=== PATIENT | male | born 1955 | race African-American/Black ===

== ENCOUNTER 2018-02-05 15:30 | Inpatient (IN) | payer OTHER ==
[2018-02-05] MEDS ORDERED: MELATONIN 5 MG TABLETS PO PRN (22:00)
[2018-02-05 22:50] VITALS: BMI 17.5
--- NOTE | 2018-02-05 23:12 | HP ---
Admission ROS [facility] Chief Complaint: I am here for alcohol rehab Allergies/Adverse Reactions: Allergies Allergy/AdvReac Type Severity Reaction Status Date / Time No Known Allergies Allergy Verified 01/02/12 18:55 History of Present Illness: 62 yo male with hx of alcohol dependence is here seeking rehab after he was admitted to [facility] 01/29/18 -02/05/18 for alcohol withdrawal. Patient presents today in stable condition. PMHX: HIV, transient paralysis of both lower extremities, uses manual wheelchair for mobility, HTN, bilateral [place] PASS , OA. Denies suicidal / homicidal ideation or suicide attempts. Exam Limitations: Physical Impairment (wheelchair dependent for mobility) - Ebola screening Have you traveled outside of the country in the last 21 days: No (N) Have you had contact with anyone from an Ebola affected area: No Do you have a fever: No - Review of Systems Constitutional: No Symptoms Reported EENT: reports: See HPI, Hearing Loss Respiratory: reports: No Symptoms reported Cardiac: reports: No Symptoms Reported GI: reports: No Symptoms Reported : reports: No Symptoms Reported Musculoskeletal: reports: Joint Stiffness (bilateral lower extremities) Neuro: reports: No Symptoms reported Endocrine: reports: No Symptoms Reported Hematology: reports: No Symptoms Reported Psychiatric: reports: Orientated x3, Anxious Other Systems: Reviewed and Negative Patient History - Patient Medical History Hx Anemia: No Hx Asthma: No Hx Chronic Obstructive Pulmonary Disease (COPD): No Hx Cancer: No Hx Cardiac Disorders: No Hx Congestive Heart Failure: No Hx Hypertension: Yes Hx Hypercholesterolemia: No Hx Pacemaker: No HX Cerebrovascular Accident: No Hx Seizures: No Hx Dementia: No Hx Diabetes: No Hx Gastrointestinal Disorders: No Hx Genitourinary Disorders: No Hx Sexually Transmitted Disorders: No Hx Renal Disease (ESRD): No Hx Human Immunodeficiency Virus (HIV): Yes (on odefsey) Hx Hepatitis C: Yes (treated ) Hx Depression: No Hx Suicide Attempt: No Hx Bipolar Disorder: No Hx Schizophrenia: No - Patient Surgical History Past Surgical History: No Hx Neurologic Surgery: No Hx Cataract Extraction: No Hx Cardiac Surgery: No Hx Lung Surgery: No Hx Breast Surgery: No Hx Breast Biopsy: No Hx Abdominal Surgery: No Hx Appendectomy: No Hx Cholecystectomy: No Hx Genitourinary Surgery: No Hx Section: No Hx Orthopedic Surgery: No Other Surgical History: CERVICAL SPINE SX Anesthesia Reaction: No - PPD History Previous Implant?: Yes Documented Results: Positive w/o proof Date: 01/04/12 Results: hx TB tx INH PPD to be Administered?: No - Reproductive History Patient is a Female of Child Bearing Age (11 -55 yrs old): No - Smoking Cessation Smoking history: Former smoker Have you smoked in the past 12 months: No Hx Chewing Tobacco Use: No Initiated information on smoking cessation: No Family Disease History - Family Disease History Family History: Unable to Obtain Admission Physical Exam S - Vital Signs Vital Signs: Vital Signs - 24 hr 02/05/18 22:42 Pulse Rate 96 H Respiratory 20 Rate Blood Pressure 99/67 - Physical General Appearance: Yes: Thin, Anxious, Other (malodorous) HEENTM: Yes: EOMI, Normal ENT Inspection, Normocephalic, Normal Voice, KENIA, Pharynx Normal, Tm's normal, Hearing Decreased ([place] PASS bilaterally) Respiratory: Yes: Chest Non-Tender, Lungs Clear, Normal Breath Sounds, No Respiratory Distress, No Accessory Muscle Use Neck: Yes: No masses,lesions,Nodules, Trachea in good position Breast: Yes: Breast Exam Deferred Cardiology: Yes: Regular Rhythm, Regular Rate Abdominal: Yes: Normal Bowel Sounds, Non Tender, Flat, Soft Genitourinary: Yes: Within Normal Limits Back: Yes: Normal Inspection Musculoskeletal: Yes: Joint Stiffness, Other (non-ambulatoy, able to bear weight with assistance, joint deofrminity on right index finger) Neurological: Yes: black top raker II-XII NML intact, Fully Oriented, Motor Strength 5/5, Depressed Affect Integumentary: Yes: Normal Color, Dry, Warm Lymphatic: Yes: Within Normal Limits - Diagnostic (1) Wheelchair dependence Current Visit: Yes Status: Chronic (2) Primary generalized (osteo)arthritis Current Visit: Yes Status: Chronic (3) Transient paralysis of right lower extremity Current Visit: Yes Status: Chronic (4) Paralysis of leg, left, transient Current Visit: Yes Status: Chronic (5) Hearing loss, bilateral Current Visit: Yes Status: Chronic (6) Hypertension Current Visit: Yes Status: Chronic Qualifiers: Hypertension type: essential hypertension Qualified Code(s): I10 - Essential (primary) hypertension (7) HIV (human immunodeficiency virus infection) Current Visit: Yes Status: Chronic Comment: compliant with medications (8) Alcohol dependence Current Visit: Yes Status: Acute Qualifiers: Substance use status: uncomplicated Qualified Code(s): F10.20 - Alcohol dependence, uncomplicated [facility] Breath Alcohol Content Breath Alcohol Content: 0.072 Urine Drug Screen - Results Drug Screen Negative: No Urine Drug Screen Results: BZO-Benzodiazepines, TCA-Tricyclic Antidepress Inpatient Rehab Admission - Initial Determination Are CD services needed?: Yes Free of communicable disease: Yes Not in need of hospitalization: Yes - Rehab Admission Criteria Previous failed treatment: Yes Poor recovery environment: Yes Comorbidities: Yes Lacks judgement: Yes Patient is meeting Inpatient Rehab admission criteria:: Yes
[2018-02-05] MEDS ORDERED: MAGNESIUM CITRATE 300 ML BOTTLE PO PRN (23:17)
[2018-02-05] MEDS ORDERED: guaiFENesin/D-METHORPHAN HB 10 ML UNIT-DOSE CUPS PO PRN (23:17)
[2018-02-05] MEDS ORDERED: P-EPHED 60MG/TRIPROLIDI 2.5MG TABLET PO PRN (23:17)
[2018-02-05] MEDS ORDERED: MAG HYDROX/AL HYDROX/SIMETH 30 ML UNIT-DOSE CUP PO PRN (23:17)
[2018-02-05] MEDS ORDERED: MAGNESIUM HYDROX 2400MG/30ML ORAL SUSPENSION 30 ML CUP PO PRN (23:17)
[2018-02-05] MEDS ORDERED: IBUPROFEN 400 MG TABLET (FP) PO PRN (23:17)
[2018-02-05] MEDS ORDERED: LOPERAMIDE HCL 2 MG CAPSULE PO PRN (23:17)
[2018-02-05] MEDS ORDERED: ACETAMINOPHEN 325 MG TABLET (FP) PO PRN (23:17)
[2018-02-05] MEDS ORDERED: MENTHOL/PHENOL 1 EACH UD MM PRN (23:17)
[2018-02-06 02:23] LABS: URINE APPEARANCE TURBID; URINE BILIRUBIN NEGATIVE (<2.0 mg/dL); URINE BLOOD 1+ (NEGATIVE); URINE COLOR AMBER; URINE GLUCOSE (UA) NEGATIVE (NEGATIVE); URINE KETONE NEGATIVE (NEGATIVE); URINE NITRITE NEGATIVE (NEGATIVE); URINE UROBILINOGEN NEGATIVE mg/dL (0.2-1.0)
[2018-02-06 02:28] LABS: URINE LEUK ESTERASE 3+ (NEGATIVE); URINE PROTEIN 2+ (NEGATIVE)
[2018-02-06 02:36] LABS: EPI CELLS RARE /HPF (FEW); URINE HYALINE CAST 4 /lpf
--- NOTE | 2018-02-06 09:32 | EKG ---
Test Reason : Blood Pressure : / mmHG Vent. Rate : 083 BPM Atrial Rate : 083 BPM P-R Int : 168 ms QRS Dur : 082 ms QT Int : 372 ms P-R-T Axes : 080 058 075 degrees QTc Int : 437 ms NORMAL SINUS RHYTHM NORMAL ECG NO PREVIOUS ECGS AVAILABLE Confirmed by DEION COPE MD ([id number]) on 02/06/2018 9:32:03 AM Referred By: Confirmed By:DEION COPE MD
[2018-02-06 10:00] LABS: CHLORIDE 104 mmol/L (98-107); HEMATOCRIT 32.6 % (35.4-49); MCH 34.8 pg (25.7-33.7); MCHC 33.8 g/dl (32.0-35.9); MEAN CELL VOLUME 102.9 fl (80-96); MEAN PLT VOLUME 8.7 fl (7.5-11.1); PLATELET COUNT 288 K/MM3 (134-434); POTASSIUM 4.5 mmol/L (3.5-5.1); RBC 3.17 M/mm3 (4.00-5.60); RDW 15.3 % (11.9-15.9); SODIUM 137 mmol/L (136-145); WHITE BLOOD COUNT 4.4 K/mm3 (4.0-10.0)
[2018-02-06] MEDS ORDERED: EMTRICITAB/RILPIVIRI/TENOF ALA (ODEFSEY) TABLET PO SCH (10:00)
[2018-02-06 10:16] LABS: ALBUMIN 3.5 g/dl (3.4-5.0); ALK PHOS 82 U/L (45-117); ANION GAP 9 (8-16); BILIRUBIN,TOTAL 0.4 mg/dL (0.2-1.0); BLOOD UREA NITROGEN 51 mg/dL (7-18); CALCIUM 9.3 mg/dL (8.5-10.1); CO2 24 mmol/L (21-32); CREATININE 3.3 mg/dL (0.7-1.3); GLUCOSE,RANDOM 84 mg/dL (74-106); SGOT/AST 17 U/L (15-37); SGPT/ALT 12 U/L (12-78); TOT PROT 9.3 g/dl (6.4-8.2)
[2018-02-06] MEDS: PRENATAL VITAMINS W/ FOLIC ACID TABLET (FP) PO SCH (10:39)
[2018-02-06] MEDS: LOSARTAN POTASSIUM 50 MG TABLET (FP) PO SCH (10:39)
[2018-02-06] MEDS: amLODIPine BESYLATE 10 MG TABLET (FP) PO SCH (10:39)
--- NOTE | 2018-02-06 13:42 | HP ---
Psychiatrist Admission - Data Date of interview: 02/06/18 Admission source: [facility] Identifying data: THis is the first 5N inpatient rehabilitation admission for this 62 year old single AA male no children, residing at [facility] [employer], supported on SSI. Medical History: HIV+, Paralysis of both lower extremity and uses wheel-chair, HTN, Osteoarthritis and Hearing loss. Psychiatric History: Denies history of psychiatric treatment Physical/Sexual Abuse/Trauma History: Denies history of sexual, physical and verbal abuse. Vital Signs: Vital Signs - 24 hr 02/05/18 02/06/18 02/06/18 22:42 00:22 03:30 Temperature 97.9 F Pulse Rate 96 H 92 H Respiratory 20 16 16 Rate Blood Pressure 99/67 112/77 02/06/18 07:03 Temperature 97.6 F Pulse Rate 105 H Respiratory 16 Rate Blood Pressure 103/63 Allergies/Adverse Reactions: Allergies Allergy/AdvReac Type Severity Reaction Status Date / Time No Known Allergies Allergy Verified 01/02/12 18:55 Date of last physical exam: 02/05/18 Concur with the findings of this exam: Yes - Substance Abuse/Tx History Hx Alcohol Use: Yes Substance Use Type: Alcohol (vodka more than 1 pints, first drink at age 15.) Hx Substance Use Treatment: Yes Mental Status Exam - Mental Status Exam Alert and Oriented to: Time, Place, Person Cognitive Function: Impaired Patient Appearance: Well Groomed Mood: Hopeful Affect: Appropriate, Mood Congruent Patient Behavior: Appropriate, Cooperative Speech Pattern: Clear, Appropriate Voice Loudness: Normal Thought Process: Goal Oriented Thought Disorder: Not Present Hallucinations: Denies Suicidal Ideation: Denies Homicidal Ideation: Denies Insight/Judgement: Fair Sleep: Fair Appetite: Fair Muscle strength/Tone: Severe Hypotonicity Gait/Station: Other (in [facility]) Psychiatric Findings - Problem List (Margaret 1, 2,3) (1) Alcohol dependence Current Visit: Yes Status: Acute Qualifiers: Substance use status: uncomplicated Qualified Code(s): F10.20 - Alcohol dependence, uncomplicated (2) HIV (human immunodeficiency virus infection) Current Visit: Yes Status: Chronic Comment: compliant with medications (3) Hearing loss, bilateral Current Visit: Yes Status: Chronic (4) Hypertension Current Visit: Yes Status: Chronic Qualifiers: Hypertension type: essential hypertension Qualified Code(s): I10 - Essential (primary) hypertension (5) Paralysis of leg, left, transient Current Visit: Yes Status: Chronic (6) Wheelchair dependence Current Visit: Yes Status: Chronic - Initial Treatment Plan Initial Treatment Plan: Group and supportive therapy, monitor progress as needed.
--- NOTE | 2018-02-06 14:07 | PN ---
[facility] Progress Note Note: Notified by staff to follow up labs. Laboratory Tests 02/06/18 02/06/18 02/06/18 00:05 07:00 07:00 WBC 4.4 D RBC 3.17 L Hgb 11.0 L D Hct 32.6 L D MCV 102.9 H MCH 34.8 H MCHC 33.8 RDW 15.3 D Plt Count 288 D MPV 8.7 D Sodium 137 Potassium 4.5 Chloride 104 Carbon Dioxide 24 Anion Gap 9 BUN 51 H D Creatinine 3.3 H D Creat Clearance w eGFR 19.09 Random Glucose 84 Calcium 9.3 Total Bilirubin 0.4 AST 17 D ALT 12 D Alkaline Phosphatase 82 D Total Protein 9.3 H Albumin 3.5 Urine Color Keerthi Urine Appearance Turbid Urine pH 5.0 Ur Specific [place] 1.015 Urine Protein 2+ H Urine Glucose (UA) Negative Urine Ketones Negative Urine Blood 1+ H Urine Nitrite Negative Urine Bilirubin Negative Urine Urobilinogen Negative Ur Leukocyte Esterase 3+ H D Urine WBC (Auto) 1418 Urine RBC (Auto) 4 Ur Epithelial Cells Rare Hyaline Casts 4 Vital Signs Temperature 97.6 F 02/06/18 07:03 Pulse Rate 105 H 02/06/18 07:03 Respiratory Rate 16 02/06/18 07:03 Blood Pressure 103/63 02/06/18 07:03 O2 Sat by Pulse Oximetry (%) Subj: pt denies denies fever, burning and pain during urination. Obj: General: alert and oriented x 3 Skin: warm and dry GI/: soft, BS+, NT. No pelvic tenderness A/P: CKD: pt to follow up with PCP upon discharge. Increase oral fluids and d/c ibupofen UTI: treat with Levaquin 750mg po daily x 7 days and continue to monitor
--- NOTE | 2018-02-06 15:34 | PN ---
[facility] Progress Note Note: Magnesium containing medication and HIV medication d/c due to creatnine clearance. Pitcher of water ordered to encourage hydration. Will check urine culture prior to starting Levaquin.
[2018-02-06] MEDS: THIAMINE HCL 100 MG TABLET (FP) PO SCH (21:39)
[2018-02-07] MEDS: LOSARTAN POTASSIUM 50 MG TABLET (FP) PO SCH (09:55)
[2018-02-07] MEDS: amLODIPine BESYLATE 10 MG TABLET (FP) PO SCH (09:56)
[2018-02-07] MEDS: PRENATAL VITAMINS W/ FOLIC ACID TABLET (FP) PO SCH (09:56)
[2018-02-07] MEDS ORDERED: levoFLOXacin 750 MG TABLET PO SCH (10:00)
[2018-02-07] MEDS: THIAMINE HCL 100 MG TABLET (FP) PO SCH (21:29)
[2018-02-08] MEDS: LOSARTAN POTASSIUM 50 MG TABLET (FP) PO SCH (10:09)
[2018-02-08] MEDS: PRENATAL VITAMINS W/ FOLIC ACID TABLET (FP) PO SCH (10:10)
[2018-02-08] MEDS: amLODIPine BESYLATE 10 MG TABLET (FP) PO SCH (10:10)
[2018-02-08] MEDS: THIAMINE HCL 100 MG TABLET (FP) PO SCH (21:29)
[2018-02-09] MEDS: amLODIPine BESYLATE 10 MG TABLET (FP) PO SCH (10:45)
[2018-02-09] MEDS: LOSARTAN POTASSIUM 50 MG TABLET (FP) PO SCH (10:45)
[2018-02-09] MEDS: PRENATAL VITAMINS W/ FOLIC ACID TABLET (FP) PO SCH (10:45)
--- NOTE | 2018-02-09 12:09 | PN ---
[facility] Progress Note Note: Pt complains of ear wax to left ear. Denies pain and fever. Ear canal with visible yellow cerumen. Will order Debrox ear gtts BID x 5 days.
[2018-02-09] MEDS: CARBAMIDE PEROXIDE 6.5% OTIC 15 ML BOTTLE AS SCH (21:40)
[2018-02-09] MEDS: THIAMINE HCL 100 MG TABLET (FP) PO SCH (21:40)
[2018-02-09 23:00] LABS: URINE APPEARANCE SLCLOUDY; URINE BILIRUBIN NEGATIVE (<2.0 mg/dL); URINE BLOOD NEGATIVE (NEGATIVE); URINE COLOR YELLOW; URINE GLUCOSE (UA) NEGATIVE (NEGATIVE); URINE KETONE NEGATIVE (NEGATIVE); URINE NITRITE NEGATIVE (NEGATIVE); URINE UROBILINOGEN NEGATIVE mg/dL (0.2-1.0)
[2018-02-09 23:08] LABS: URINE LEUK ESTERASE 3+ (NEGATIVE); URINE PROTEIN 2+ (NEGATIVE)
[2018-02-09 23:09] LABS: EPI CELLS RARE /HPF (FEW); URINE MUCUS RARE
[2018-02-10] MEDS: PRENATAL VITAMINS W/ FOLIC ACID TABLET (FP) PO SCH (10:14)
[2018-02-10] MEDS: amLODIPine BESYLATE 10 MG TABLET (FP) PO SCH (10:14)
[2018-02-10] MEDS: LOSARTAN POTASSIUM 50 MG TABLET (FP) PO SCH (10:14)
[2018-02-10] MEDS: CARBAMIDE PEROXIDE 6.5% OTIC 15 ML BOTTLE AS SCH ×2 (10:15→21:38)
[2018-02-10 14:29] LABS: ALBUMIN 3.6 g/dl (3.4-5.0); ANION GAP 7 (8-16); BILIRUBIN,TOTAL 0.3 mg/dL (0.2-1.0); BLOOD UREA NITROGEN 33 mg/dL (7-18); CALCIUM 9.2 mg/dL (8.5-10.1); CHLORIDE 107 mmol/L (98-107); CO2 26 mmol/L (21-32); CREATININE 2.5 mg/dL (0.7-1.3); GLUCOSE,RANDOM 92 mg/dL (74-106); POTASSIUM 4.3 mmol/L (3.5-5.1); SGOT/AST 20 U/L (15-37); SGPT/ALT 18 U/L (12-78); SODIUM 140 mmol/L (136-145); TOT PROT 9.2 g/dl (6.4-8.2)
[2018-02-10 14:31] LABS: ALK PHOS 83 U/L (45-117)
[2018-02-10] MEDS: THIAMINE HCL 100 MG TABLET (FP) PO SCH (21:37)
[2018-02-11] MEDS: LOSARTAN POTASSIUM 50 MG TABLET (FP) PO SCH (10:03)
[2018-02-11] MEDS: CARBAMIDE PEROXIDE 6.5% OTIC 15 ML BOTTLE AS SCH ×2 (10:03→21:27)
[2018-02-11] MEDS: amLODIPine BESYLATE 10 MG TABLET (FP) PO SCH (10:03)
[2018-02-11] MEDS: PRENATAL VITAMINS W/ FOLIC ACID TABLET (FP) PO SCH (10:03)
[2018-02-11] MEDS: THIAMINE HCL 100 MG TABLET (FP) PO SCH (21:27)
[2018-02-12] MEDS: LOSARTAN POTASSIUM 50 MG TABLET (FP) PO SCH (10:01)
[2018-02-12] MEDS: PRENATAL VITAMINS W/ FOLIC ACID TABLET (FP) PO SCH (10:01)
[2018-02-12] MEDS: amLODIPine BESYLATE 10 MG TABLET (FP) PO SCH (10:01)
[2018-02-12] MEDS: CARBAMIDE PEROXIDE 6.5% OTIC 15 ML BOTTLE AS SCH ×2 (10:05→22:03)
--- NOTE | 2018-02-12 16:05 | PN ---
[facility] Progress Note Note: Vital Signs Temperature 97.9 F 02/12/18 06:52 Pulse Rate 96 H 02/12/18 06:52 Respiratory Rate 18 02/12/18 06:52 Blood Pressure 112/75 02/12/18 06:52 O2 Sat by Pulse Oximetry (%) Laboratory Last Values WBC 4.4 K/mm3 (4.0-10.0) D 02/06/18 07:00 RBC 3.17 M/mm3 (4.00-5.60) L 02/06/18 07:00 Hgb 11.0 GM/dL (11.7-16.9) L D 02/06/18 07:00 Hct 32.6 % (35.4-49) L D 02/06/18 07:00 MCV 102.9 fl (80-96) H 02/06/18 07:00 MCH 34.8 pg (25.7-33.7) H 02/06/18 07:00 MCHC 33.8 g/dl (32.0-35.9) 02/06/18 07:00 RDW 15.3 % (11.9-15.9) D 02/06/18 07:00 Plt Count 288 K/MM3 (134-434) D 02/06/18 07:00 MPV 8.7 fl (7.5-11.1) D 02/06/18 07:00 Sodium 140 mmol/L (136-145) 02/10/18 08:35 Potassium 4.3 mmol/L (3.5-5.1) 02/10/18 08:35 Chloride 107 mmol/L (98-107) 02/10/18 08:35 Carbon Dioxide 26 mmol/L (21-32) 02/10/18 08:35 Anion Gap 7 (8-16) L 02/10/18 08:35 BUN 33 mg/dL (7-18) H D 02/10/18 08:35 Creatinine 2.5 mg/dL (0.7-1.3) H D 02/10/18 08:35 Creat Clearance w eGFR 26.30 (>60) 02/10/18 08:35 Random Glucose 92 mg/dL (74-106) 02/10/18 08:35 Calcium 9.2 mg/dL (8.5-10.1) 02/10/18 08:35 Total Bilirubin 0.3 mg/dL (0.2-1.0) D 02/10/18 08:35 AST 20 U/L (15-37) 02/10/18 08:35 ALT 18 U/L (12-78) D 02/10/18 08:35 Alkaline Phosphatase 83 U/L (45-117) 02/10/18 08:35 Total Protein 9.2 g/dl (6.4-8.2) H 02/10/18 08:35 Albumin 3.6 g/dl (3.4-5.0) 02/10/18 08:35 Urine Color Yellow 02/09/18 23:00 Urine Appearance Slcloudy 02/09/18 23:00 Urine pH 6.0 (5.0-8.0) 02/09/18 23:00 Ur Specific [place] 1.012 (1.001-1.035) 02/09/18 23:00 Urine Protein 2+ (NEGATIVE) H 02/09/18 23:00 Urine Glucose (UA) Negative (NEGATIVE) 02/09/18 23:00 Urine Ketones Negative (NEGATIVE) 02/09/18 23:00 Urine Blood Negative (NEGATIVE) 02/09/18 23:00 Urine Nitrite Negative (NEGATIVE) 02/09/18 23:00 Urine Bilirubin Negative (<2.0 mg/dL) 02/09/18 23:00 Urine Urobilinogen Negative mg/dL (0.2-1.0) 02/09/18 23:00 Ur Leukocyte Esterase 3+ (NEGATIVE) H 02/09/18 23:00 Urine WBC (Auto) 89 /hpf (3-5) 02/09/18 23:00 Urine RBC (Auto) 1 /hpf (0-3) 02/09/18 23:00 Ur Epithelial Cells Rare /HPF (FEW) 02/09/18 23:00 Hyaline Casts 4 /lpf 02/06/18 00:05 Urine Mucus Rare 02/09/18 23:00 RPR Titer Nonreactive (NONREACTIVE) 02/06/18 07:00 Microbiology 02/09/18 16:37 Urine Culture - Final Urine - Urine Clean Catch Providencia Rettgeri Patient AOx3, in no apparent distress Normal HR and Rhythm Lungs clear no adventitious breath sound BS x 4 non tender, non distended Plan: Urine Culture + Providencia Rettgeri which is resistant to all PO abx. Patient needs IV abx tx. Patient to be evaluate at [facility] for further evaluation.
[2018-02-12 16:11] VITALS: BP 113/79; PULSE 88; TEMP 97.8
[2018-02-12] MEDS: THIAMINE HCL 100 MG TABLET (FP) PO SCH (22:03)
== END 2018-02-12 23:43 | disposition short-term general hospital (02) | DRG 772 ==
LOC: YASAS 15:30 → Y5N 21:27
PROVIDERS: ADMIT Psychiatry & Neurology Psychiatry; ATTEND Psychiatry & Neurology Psychiatry
PROC: HZ42ZZZ Group Counseling for Substance Abuse Treatment, Cognitive-Behavioral (ICD-10-PCS; principal; 2018-02-05)
DX: F10.20 Alcohol dependence, uncomplicated (principal); I10 Essential (primary) hypertension; Z21 Asymptomatic human immunodeficiency virus [HIV] infection status; H91.93 Unspecified hearing loss, bilateral; R29.818 Other symptoms and signs involving the nervous system; M15.0 Primary generalized (osteo)arthritis; Z99.3 Dependence on wheelchair; R26.89 Other abnormalities of gait and mobility; N39.0 Urinary tract infection, site not specified
CPT/HCPCS: 36415; 71045-TC-FY; 80053; 81003; 81015; 85027; 86593; 87086; 87186; 93005; 93010

== ENCOUNTER 2018-02-12 17:14 | Inpatient (IN) | payer OTHER ==
--- NOTE | 2018-02-12 17:47 | PDOC ---
History of Present Illness - General Chief Complaint: Urinary Problem Stated Complaint: UTI Time Seen by Provider: 02/12/18 17:27 History Source: Patient - History of Present Illness Initial Comments: 02/12/18 17:49 Patient 62 year old with a PMH of HIV, substance (ETOH, possibly IVDU) male presents to ED c/o increased urgency. States "they told me I had a urine infection" but is unable to provide further history. Denies fevers/chills, dysuria/hematuria. States he follows at [facility], does not know his last CD4 counts, starts he is on anti-retrovirals but cannot recall the name. Patient denies chest pain, shortness of breath, abdominal pain, diarrhea/ constipation, nausea/vomiting, recent travel or sick contacts. As per EMR, patient presents from [facility] following UA/urine culture with Providencia Rettgeri - susceptibility to Meropenem. Past History - Past Medical History Allergies/Adverse Reactions: Allergies Allergy/AdvReac Type Severity Reaction Status Date / Time No Known Allergies Allergy Verified 02/12/18 17:21 Home Medications: Ambulatory Orders Amlodipine Besylate 10 mg PO DAILY 02/05/18 Emtricitab/Rilpiviri/Tenof Ala [Odefsey Tablet] 1 tab PO DAILY 02/05/18 Losartan Potassium [Cozaar] 100 mg PO DAILY 02/05/18 Anemia: No Asthma: No Cancer: No Cardiac Disorders: Yes CVA: No COPD: No CHF: No Dementia: No Diabetes: No GI Disorders: No Disorders: No HTN: Yes Hypercholesterolemia: No Kidney Stones: No Seizures: No - Surgical History Abdominal Surgery: No Appendectomy: No Cardiac Surgery: No Cholecystectomy: No Lung Surgery: No Neurologic Surgery: No Orthopedic Surgery: No - Reproductive History Testicular Surgery: No - Suicide/Smoking/Psychosocial Hx Smoking History: Former smoker Have you smoked in the past 12 months: No Number of Cigarettes Smoked Daily: 3 Information on smoking cessation initiated: No Hx Alcohol Use: Yes Drug/Substance Use Hx: No Substance Use Type: Alcohol Hx Substance Use Treatment: Yes *Physical Exam - Vital Signs Last Vital Signs Temp Pulse Resp BP Pulse Ox 97.8 F 83 20 153/105 100 02/12/18 17:21 02/12/18 17:21 02/12/18 17:21 02/12/18 17:21 02/12/18 17:21 - Physical Exam General Appearance: Yes: Cachetic HEENT: positive: KENIA Neck: positive: Trachea midline, Supple Respiratory/Chest: positive: Lungs Clear Cardiovascular: positive: S1, S2. negative: Edema, JVD, Murmur Vascular Pulses: Dorsalis-Pedis (R): 2+, Doralis-Pedis (L): 2+ Gastrointestinal/Abdominal: positive: Flat, Soft Musculoskeletal: positive: CVA Tenderness (L). negative: CVA Tenderness (R) Extremity: positive: Normal Capillary Refill, Normal Inspection Integumentary: positive: Normal Color, Dry, Warm Neurologic: positive: Fully Oriented, Alert ED Treatment Course - LABORATORY CBC & Chemistry Diagram: 02/12/18 17:55 02/12/18 17:55 Medical Decision Making - Medical Decision Making 02/12/18 17:51 62 year old male presents with increased urinary urgency. Physical exam significant for suprapubic and L CVA tenderness. Will obtain basic labs + UA/ Urine Culture. Targeted treatment for Providencia Rettgeri with Meropenem. IV hydration. Reassess. 02/12/18 19:09 ID consult pending. Patient resting comfortably. UA pending, given previous urine culture will give OTD of Meropenem. 02/12/18 20:12 Patient admitted to inpatient medicine service, Dr. Meza. Patient counseled on POC. Will continue to monitor while in ED. *DC/Admit/Observation/Transfer Diagnosis at time of Disposition: UTI (urinary tract infection) - Referrals - Patient Instructions - Post Discharge Activity
[2018-02-12 18:33] LABS: HEMATOCRIT 33.4 % (35.4-49); HEMOGLOBIN 11.5 GM/dL (11.7-16.9); MCH 35.2 pg (25.7-33.7); MCHC 34.3 g/dl (32.0-35.9); MEAN CELL VOLUME 102.5 fl (80-96); MEAN PLT VOLUME 8.5 fl (7.5-11.1); PLATELET COUNT 279 K/MM3 (134-434); RBC 3.25 M/mm3 (4.00-5.60); RDW 15.2 % (11.9-15.9); WHITE BLOOD COUNT 4.4 K/mm3 (4.0-10.0)
[2018-02-12] MEDS ORDERED: SODIUM CHLORIDE 0.9% 500 ML INFUS.BAG IV ONE (18:44)
[2018-02-12] MEDS ORDERED: MEROPENEM 1 MG in DEXTROSE 5%-WATER - 100 ML IVPB ONE (18:46)
--- NOTE | 2018-02-12 18:48 | PDOC ---
Attending Attestation - Resident Resident Name: AlAbby - ED Attending Attestation I have performed the following: I have examined & evaluated the patient, The case was reviewed & discussed with the resident, I agree w/resident's findings & plan, Exceptions are as noted - Medical Decision Making 02/12/18 18:46 62yo M hx HIV presents to the ED for IV abx 2/2 ucx with MDR UCx sensitive to only penems and amikacin. Pt is HDS. Will cover with meropenem and admit for IV abx. <Margaret Ibarra - Last Filed: 02/12/18 18:46> - Medical Decision Making 02/12/18 19:27 Dr. Weinberg called @19:26pm. Case Discussed at this time, recommends meropenem Q8hrs IV. He will see pt in AM. <Volodymyr Cabrera - Last Filed: 02/12/18 19:28>
[2018-02-12 18:50] LABS: URINE APPEARANCE SLCLOUDY; URINE BILIRUBIN NEGATIVE (<2.0 mg/dL); URINE BLOOD NEGATIVE (NEGATIVE); URINE COLOR YELLOW; URINE GLUCOSE (UA) NEGATIVE (NEGATIVE); URINE KETONE NEGATIVE (NEGATIVE); URINE LEUK ESTERASE 2+ (NEGATIVE); URINE NITRITE NEGATIVE (NEGATIVE); URINE PROTEIN 2+ (NEGATIVE); URINE UROBILINOGEN NEGATIVE mg/dL (0.2-1.0)
[2018-02-12] MEDS ORDERED: WATER IVPB ONE (18:51)
[2018-02-12] MEDS ORDERED: MEROPENEM IVPB ONE (18:51)
[2018-02-12] MEDS ORDERED: DEXTROSE 5% IVPB ONE (18:51)
[2018-02-12 18:54] LABS: EPI CELLS RARE /HPF (FEW); YEAST RARE
[2018-02-12 18:56] LABS: ANISOCYTOSIS 1+; MACROCYTOSIS 1+; PLATELET ESTIMATE ADEQUATE
[2018-02-12 19:03] LABS: ALBUMIN 3.6 g/dl (3.4-5.0); ALK PHOS 93 U/L (45-117); ANION GAP 3 (8-16); BILIRUBIN,TOTAL 0.2 mg/dL (0.2-1.0); BLOOD UREA NITROGEN 31 mg/dL (7-18); CALCIUM 9.5 mg/dL (8.5-10.1); CHLORIDE 109 mmol/L (98-107); CO2 29 mmol/L (21-32); CREATININE 2.5 mg/dL (0.7-1.3); GLUCOSE,RANDOM 94 mg/dL (74-106); POTASSIUM 5.2 mmol/L (3.5-5.1); SGOT/AST 30 U/L (15-37); SGPT/ALT 29 U/L (12-78); SODIUM 141 mmol/L (136-145); TOT PROT 9.4 g/dl (6.4-8.2)
--- NOTE | 2018-02-12 20:18 | HP ---
CHIEF COMPLAINT: Flank Pain, Abnormal Lab Results PCP: Dr. Loza HISTORY OF PRESENT ILLNESS: 62 y/o man from [facility] for Alcohol Detox. Who presents to the ED sent in for +urine culture and left flank pain. Patient had recent admission 01/29/-02/05 for alcohol withdrawal. Patient reports having L- flank pain x several days worse today. Patient reports having R- leg pain which he attributes to neuropathy 2/2 chronic R- hip pain. Patient denies fever, chills, cough, SOB, dizziness, CP, AP , N/V/D, dysuria ER course was notable for: (1) BUN/Cr- 31/2.5 (2) K 5.2 (3) Recent Travel: None PAST MEDICAL HISTORY: HIV + (? HAART Complaint) Alcohol Abuse Hypertension Paralysis of lower extremities (wc dependent) OA Hearing loss PAST SURGICAL HISTORY: C- Spine sx Nasal sx R-Hip Social History: Smoking: Former Alcohol: Vodka 1 pint daily, since age 15 Drugs: Denies Family History: Unable to Obtain Allergies No Known Allergies Allergy (Verified 02/12/18 17:21) HOME MEDICATIONS: Home Medications Medication Instructions Recorded Amlodipine Besylate 10 mg PO DAILY 02/05/18 Emtricitab/Rilpiviri/Tenof Ala 1 tab PO DAILY 02/05/18 [Odefsey Tablet] Losartan Potassium [Cozaar] 100 mg PO DAILY 02/05/18 REVIEW OF SYSTEMS CONSTITUTIONAL: Absent: fever, chills, diaphoresis, generalized weakness, malaise, loss of appetite, weight change HEENT: Absent: rhinorrhea, nasal congestion, throat pain, throat swelling, difficulty swallowing, mouth swelling, ear pain, eye pain, visual changes CARDIOVASCULAR: Absent: chest pain, syncope, palpitations, irregular heart rate, lightheadedness , peripheral edema RESPIRATORY: Absent: cough, shortness of breath, dyspnea with exertion, orthopnea, wheezing, stridor, hemoptysis GASTROINTESTINAL: Absent: abdominal pain, abdominal distension, nausea, vomiting, diarrhea, constipation, melena, hematochezia GENITOURINARY: L- flank pain Absent: dysuria, frequency, urgency, hesitancy, hematuria, genital pain MUSCULOSKELETAL: Arthralgia, R- leg pain Absent: myalgia, joint swelling, back pain, neck pain SKIN: Absent: rash, itching, pallor HEMATOLOGIC/IMMUNOLOGIC: Absent: easy bleeding, easy bruising, lymphadenopathy, frequent infections ENDOCRINE: Absent: unexplained weight gain, unexplained weight loss, heat intolerance, cold intolerance NEUROLOGIC: Absent: headache, focal weakness or paresthesias, dizziness, unsteady gait, seizure, mental status changes, bladder or bowel incontinence PSYCHIATRIC: Absent: anxiety, depression, suicidal or homicidal ideation, hallucinations. PHYSICAL EXAMINATION Vital Signs - 24 hr 02/12/18 02/12/18 17:21 19:47 Temperature 97.8 F 97.3 F L Pulse Rate 83 Pulse Rate [ 76 Radial] Respiratory 20 18 Rate Blood Pressure 153/105 Blood Pressure 150/74 [Right Arm] O2 Sat by Pulse 100 99 Oximetry (%) GENERAL: Thin, awake, alert, and fully oriented, in no acute distress. HEAD: Normal with no signs of trauma. EYES: Pupils equal, round and reactive to light, extraocular movements intact, sclera anicteric, conjunctiva clear. No lid lag. EARS, NOSE, THROAT: Ears- cerumen nares patent, oropharynx clear without exudates. Moist mucous membranes. NECK: Normal range of motion, supple without lymphadenopathy, JVD, or masses. LUNGS: Breath sounds equal, clear to auscultation bilaterally. No wheezes, and no crackles. No accessory muscle use. HEART: Regular rate and rhythm, normal S1 and S2 without murmur, rub or gallop. ABDOMEN: Soft, nontender, not distended, normoactive bowel sounds, no guarding, no rebound, no masses. No hepatomegaly or splenomegaly. MUSCULOSKELETAL: Normal range of motion RUE, LUE joints. No bony deformities. R - hip tenderness. LROM of LE, flaccid tone R>L, L-CVA tenderness. UPPER EXTREMITIES: 2+ pulses, warm, well-perfused. No cyanosis. No clubbing. No peripheral edema. LOWER EXTREMITIES: 2+ pulses, warm, well-perfused. No calf tenderness. No peripheral edema. NEUROLOGICAL: Cranial nerves II-XII intact. Normal speech. Kau-[id number]-[id number] not observed PSYCHIATRIC: Cooperative. Good eye contact. Appropriate mood and affect. SKIN: Warm, dry, normal turgor, no rashes or lesions noted, normal capillary refill. Laboratory Results - last 24 hr 02/12/18 02/12/18 02/12/18 17:55 17:55 18:00 WBC 4.4 RBC 3.25 L Hgb 11.5 L Hct 33.4 L MCV 102.5 H MCH 35.2 H MCHC 34.3 RDW 15.2 Plt Count 279 MPV 8.5 Total Counted 100 Neutrophils % No Result Required. Neutrophils % (Manual) 54.0 Lymphocytes % No Result Required. Lymphocytes % (Manual) 28.0 Monocytes % (Manual) 9 Eosinophils % (Manual) 7.0 H Platelet Estimate Adequate Platelet Comment No clumping noted Anisocytosis 1+ Macrocytosis 1+ Sodium 141 Potassium 5.2 H D Chloride 109 H Carbon Dioxide 29 Anion Gap 3 L BUN 31 H Creatinine 2.5 H Creat Clearance w eGFR 26.30 Random Glucose 94 Calcium 9.5 Total Bilirubin 0.2 D AST 30 D ALT 29 D Alkaline Phosphatase 93 Total Protein 9.4 H Albumin 3.6 Urine Color Yellow Urine Appearance Slcloudy Urine pH 6.0 Ur Specific [place] 1.011 Urine Protein 2+ H Urine Glucose (UA) Negative Urine Ketones Negative Urine Blood Negative Urine Nitrite Negative Urine Bilirubin Negative Urine Urobilinogen Negative Ur Leukocyte Esterase 2+ H Urine WBC (Auto) 66 Urine RBC (Auto) 1 Ur Epithelial Cells Rare Urine Yeast Rare ASSESSMENT/PLAN: This is a 62 y/o man who presents to the ED from [facility] for +Urine Culture, Dysuria, Flank Pain. Admitted for Complicated UTI. 1. Complicated UTI - UA +2 protein, +2 leukocyte esterase, 66 WBC, Urine Culture (done on 02/09/18 ) + providencia rettgeri, Urine Culture-pending - Ordered Blood Cultures x2 - Meropenem given in ED, secondary to blaise - Appreciate ID consult - Monitor CBC - Monitor vitals 2. ?Pyelonephritis - Likely secondary complicated UTI - pt reports flank pain/dysuria - CTAP r/o pyelonephritis concern for abscess - Monitor renal function - Continue ABX - ID consult 3. Hypertension - stable - Continue home meds 4. HIV - Continue Odefsey - Crcl 30ml/mn - Continue to monitor renal function - f/u in outpatient with CD4 5. Alcohol Abuse - CIWAr 0 - Appreciate Detox consult - Monitor vitals - Fall Precautions 6. Cerumen Impaction TELIDA - continue Debrox - f/u ENT outpatient 7. R- Leg Pain - Tylenol prn - Consider Gabapentin for neuropathy 8. Transient Paralysis of lower extremities - Secondary to frequent falls hx, Right hip dislocation, per pt - PT passive ROM - Turn/Position Q2h - Fall Precautions 9. FEN - D51/2NS - Replete lytes prn - NPO 10. DVT ppx - OOB - SCDs - Heparin SQ Dispo: Requires Inpatient Care Problem List - Problem (1) Urinary tract bacterial infections Code(s): N39.0 - URINARY TRACT INFECTION, SITE NOT SPECIFIED; A49.9 - BACTERIAL INFECTION, UNSPECIFIED (2) Alcohol dependence Code(s): F10.20 - ALCOHOL DEPENDENCE, UNCOMPLICATED Qualifiers: (3) HIV (human immunodeficiency virus infection) Code(s): B20 - HUMAN IMMUNODEFICIENCY VIRUS [HIV] DISEASE (4) Hypertension Code(s): I10 - ESSENTIAL (PRIMARY) HYPERTENSION Qualifiers: (5) Primary generalized (osteo)arthritis Code(s): M15.0 - PRIMARY GENERALIZED (OSTEO)ARTHRITIS (6) Transient paralysis of right lower extremity Code(s): R29.818 - OTHER SYMPTOMS AND SIGNS INVOLVING THE NERVOUS SYSTEM (7) Paralysis of leg, left, transient Code(s): R29.818 - OTHER SYMPTOMS AND SIGNS INVOLVING THE NERVOUS SYSTEM (8) Cerumen impaction Code(s): H61.20 - IMPACTED CERUMEN, UNSPECIFIED EAR Qualifiers: Laterality: left Qualified Code(s): H61.22 - Impacted cerumen, left ear (9) Hearing loss, bilateral Code(s): H91.93 - UNSPECIFIED HEARING LOSS, BILATERAL (10) Wheelchair dependence Code(s): Z99.3 - DEPENDENCE ON WHEELCHAIR (11) DVT prophylaxis Code(s): MFU9165 - Visit type - Emergency Visit Emergency Visit: Yes ED Registration Date: 02/12/18 Care time: The patient presented to the Emergency Department on the above date and was hospitalized for further evaluation of their emergent condition. - New Patient This patient is new to me today: Yes Date on this admission: 02/12/18 - Critical Care Critical Care patient: No Hospitalist Screening - Colonoscopy Questionnaire Colonoscopy Questionnaire: Colonoscopy Questionnaire - Patient: 50 - 75 years old and never had a screening colonoscopy: No History of colon or rectal polyps, or CA: No History of IBD, Crohn's disease or UC: No History of abdominal radiation therapy as a child: No - Relative: 1 with colon or rectal CA, or polyps at age 60 or younger: No Colon or rectal CA diagnosed at age 45 or younger: No Multiple relatives with colon or rectal CA: No - Outcome: Screening Result: Negative Screen
[2018-02-12] MEDS: DEXTROSE 5%-0.45% SALINE 1,000 ML IV SCH (21:35)
[2018-02-12] MEDS ORDERED: traMADol HCL 50 MG TABLET PO ONE (23:00)
[2018-02-12 23:44] VITALS: BMI 17.5
[2018-02-13 07:27] LABS: ANION GAP 9 (8-16); BLOOD UREA NITROGEN 30 mg/dL (7-18); CALCIUM 8.9 mg/dL (8.5-10.1); CHLORIDE 108 mmol/L (98-107); CO2 24 mmol/L (21-32); CREATININE 2.2 mg/dL (0.7-1.3); GLUCOSE,RANDOM 93 mg/dL (74-106); POTASSIUM 4.3 mmol/L (3.5-5.1); SODIUM 141 mmol/L (136-145)
--- NOTE | 2018-02-13 07:44 | CONSULT ---
Consultation: REQUESTING PROVIDER: CONSULT REQUEST: We have been asked to medically evaluate this patient for Pyelonephritis in HIV pos pt. HISTORY OF PRESENT ILLNESS: Pt is a 62 y/o M with PMH significant for EtOH abuse, HIV (follows at "[facility]" clinic, which he states is in his apartment building), and recent admission with UCx pos for MDR Providencia. Pt states he went to [facility] for detox and was sent to the hospital because of his kidney infection. He states he has had no symptoms apart from some mild left sided back pain. Denies fever, chills, abdominal pain, burning on urination, blood in urine, cp, sob. Has remote history IVDA and has been sexually active with multiple partners without protection. States he has had TB and was treated and has had oral thrush in the past. States his viral load is currently undetectable. REVIEW OF SYSTEMS: CONSTITUTIONAL: Absent: fever, chills, diaphoresis, generalized weakness, malaise, loss of appetite, weight change HEENT: Absent: rhinorrhea, nasal congestion, throat pain, throat swelling, difficulty swallowing, mouth swelling, ear pain, eye pain, visual changes CARDIOVASCULAR: Absent: chest pain, syncope, palpitations, irregular heart rate, lightheadedness , peripheral edema RESPIRATORY: Absent: cough, shortness of breath, dyspnea with exertion, orthopnea, wheezing, stridor, hemoptysis GASTROINTESTINAL:L posterior flank abdominal pain Absent: , abdominal distension, nausea, vomiting, diarrhea, constipation, melena , hematochezia GENITOURINARY: Absent: dysuria, frequency, urgency, hesitancy, hematuria, flank pain, genital pain MUSCULOSKELETAL: arthralgia R hip, Absent: myalgia, , joint swelling, back pain, neck pain SKIN: Absent: rash, itching, pallor HEMATOLOGIC/IMMUNOLOGIC: Absent: easy bleeding, easy bruising, lymphadenopathy, frequent infections ENDOCRINE: Absent: unexplained weight gain, unexplained weight loss, heat intolerance, cold intolerance NEUROLOGIC: Absent: headache, focal weakness or paresthesias, dizziness, unsteady gait, seizure, mental status changes, bladder or bowel incontinence PSYCHIATRIC: Absent: anxiety, depression, suicidal or homicidal ideation, hallucinations. PHYSICAL EXAMINATION Vital Signs - 24 hr 02/12/18 02/12/18 02/12/18 17:21 19:47 22:00 Temperature 97.8 F 97.3 F L 97.8 F Pulse Rate 83 74 Pulse Rate [ 76 Radial] Respiratory 20 18 18 Rate Blood Pressure 153/105 138/91 Blood Pressure 150/74 [Right Arm] O2 Sat by Pulse 100 99 99 Oximetry (%) 02/13/18 02/13/18 00:59 05:38 Temperature 98 F 97.7 F Pulse Rate 70 77 Pulse Rate [ Radial] Respiratory 18 16 Rate Blood Pressure 128/87 124/86 Blood Pressure [Right Arm] O2 Sat by Pulse Oximetry (%) GENERAL: Awake, alert, and fully oriented, in no acute distress. HEAD: Normal with no signs of trauma. EYES: Pupils equal, 2-3mm, round and reactive to light, extraocular movements intact, sclera anicteric, conjunctiva clear. No lid lag. EARS, NOSE, THROAT: oropharynx clear without exudates. Moist mucous membranes. NECK: Normal range of motion, supple without lymphadenopathy, JVD, or masses. LUNGS: Breath sounds equal, clear to auscultation bilaterally. No wheezes, and no crackles. No accessory muscle use. HEART: Regular rate and rhythm, normal S1 and S2 without murmur, rub or gallop. ABDOMEN: pos left flank tenderness to fist percussion. Soft, nontender, not distended, normoactive bowel sounds, no guarding, no rebound, no masses. No hepatomegaly or splenomegaly. MUSCULOSKELETAL: Right hip pain on active/passive motion UPPER EXTREMITIES: 2+ pulses, warm, well-perfused. No cyanosis. No clubbing. Cap refill <2 seconds. No peripheral edema. LOWER EXTREMITIES: 2+ pulses, warm, well-perfused. No calf tenderness. No peripheral edema. NEUROLOGICAL: Cranial nerves II-XII intact. Normal speech PSYCHIATRIC: Cooperative. Good eye contact. Appropriate mood and affect. SKIN: numerous small dark papules throughout the body including palms and soles. Warm, dry, normal turgor, no rashes or lesions noted. Laboratory Results - last 24 hr 02/12/18 02/12/18 02/12/18 17:55 17:55 18:00 WBC 4.4 RBC 3.25 L Hgb 11.5 L Hct 33.4 L MCV 102.5 H MCH 35.2 H MCHC 34.3 RDW 15.2 Plt Count 279 MPV 8.5 Total Counted 100 Neutrophils % No Result Required. Neutrophils % (Manual) 54.0 Lymphocytes % No Result Required. Lymphocytes % (Manual) 28.0 Monocytes % (Manual) 9 Eosinophils % (Manual) 7.0 H Platelet Estimate Adequate Platelet Comment No clumping noted Anisocytosis 1+ Macrocytosis 1+ Sodium 141 Potassium 5.2 H D Chloride 109 H Carbon Dioxide 29 Anion Gap 3 L BUN 31 H Creatinine 2.5 H Creat Clearance w eGFR 26.30 Random Glucose 94 Calcium 9.5 Total Bilirubin 0.2 D AST 30 D ALT 29 D Alkaline Phosphatase 93 Total Protein 9.4 H Albumin 3.6 Urine Color Yellow Urine Appearance Slcloudy Urine pH 6.0 Ur Specific [place] 1.011 Urine Protein 2+ H Urine Glucose (UA) Negative Urine Ketones Negative Urine Blood Negative Urine Nitrite Negative Urine Bilirubin Negative Urine Urobilinogen Negative Ur Leukocyte Esterase 2+ H Urine WBC (Auto) 66 Urine RBC (Auto) 1 Ur Epithelial Cells Rare Urine Yeast Rare Active Medications Generic Name Dose Route Start Last Admin Trade Name Freq PRN Reason Stop Dose Admin Amlodipine Besylate 10 mg 02/13/18 10:00 Norvasc - PO DAILY FATOU Dextrose/Sodium Chloride 1,000 mls @ 75 mls/hr 02/12/18 20:45 02/12/18 21:35 D5-1/2ns - IV 75 mls/hr ASDIR FATOU Administration Losartan Potassium 100 mg 02/13/18 10:00 Cozaar - PO DAILY FATOU Non-Formulary Medication 1 tab 02/13/18 10:00 Emtricitab/Rilpiviri/Tenof Ala [Odefsey Tablet] PO DAILY FATOU ASSESSMENT/PLAN: Pt is a 62 y/o M with PMH HIV, EtOH abuse, and MDR UTI who presents to ED sent from [facility] with Left flank pain. #MDR UTI/Pyelo -Left flank pain -Documented MDR UTI from recent admission ([facility]) sensitive to Titus, Erta , and Amikacin -Afebrile -no leukocytosis -BCx pending -UCx pending -Got Meropenem in ED -Ertapenem 500 -Hold HIV meds until renal function improves, possibly tomorrow -Contact isolation for drug resistant Providencia Bertram Machado MD PGY-1 ID Dispo: We will continue to follow the patient. Thank you for this consultative opportunity. Visit type - Emergency Visit Emergency Visit: No - New Patient This patient is new to me today: Yes Date on this admission: 02/13/18 - Critical Care Critical Care patient: No
[2018-02-13 07:49] LABS: HEMATOCRIT 31.3 % (35.4-49); HEMOGLOBIN 10.7 GM/dL (11.7-16.9); MCH 34.7 pg (25.7-33.7); MCHC 34.1 g/dl (32.0-35.9); MEAN CELL VOLUME 101.8 fl (80-96); MEAN PLT VOLUME 8.4 fl (7.5-11.1); PLATELET COUNT 244 K/MM3 (134-434); RBC 3.08 M/mm3 (4.00-5.60); RDW 14.6 % (11.9-15.9); WHITE BLOOD COUNT 3.9 K/mm3 (4.0-10.0)
[2018-02-13 09:16] LABS: PLATELET ESTIMATE NORMAL
--- NOTE | 2018-02-13 09:54 | EKG ---
Test Reason : Blood Pressure : / mmHG Vent. Rate : 073 BPM Atrial Rate : 073 BPM P-R Int : 158 ms QRS Dur : 076 ms QT Int : 400 ms P-R-T Axes : 069 061 076 degrees QTc Int : 440 ms NORMAL SINUS RHYTHM NORMAL ECG WHEN COMPARED WITH ECG OF 06-FEB-2018 07:55, NO SIGNIFICANT CHANGE WAS FOUND Confirmed by DEION COPE MD ([id number]) on 02/13/2018 9:54:05 AM Referred By: Confirmed By:DEION COPE MD
[2018-02-13] MEDS: LOSARTAN POTASSIUM 50 MG TABLET (FP) PO SCH (10:27)
[2018-02-13] MEDS: amLODIPine BESYLATE 10 MG TABLET (FP) PO SCH (10:27)
[2018-02-13] MEDS ORDERED: MEROPENEM 500 MG VIAL (RESTRICTED TO ID) IVPB SCH (10:45)
[2018-02-13] MEDS ORDERED: MEROPENEM 500 MG in DEXTROSE 5%-WATER - 100 ML IVPB ONE (11:00)
--- NOTE | 2018-02-13 11:08 | PN ---
Teaching Attending Note Name of Resident: Bertram Machado ATTENDING PHYSICIAN STATEMENT I saw and evaluated the patient. I reviewed the resident's note and discussed the case with the resident. I agree with the resident's findings and plan as documented. SUBJECTIVE: transferred for JIMBO and UTI no dysuria but has left flank pain and pyuria admitted on 02/05 to detox for etoh use transferred for antibiotic resistant UTI OBJECTIVE: Vital Signs Period Temp Pulse Resp BP Sys/Sparks Pulse Ox Last 24 Hr 97.3 F-98 F 70-83 16-20 124-153/74-105 99-100 cor-rrr llungs decreased breath sounds at bases abd soft,nt +left flank pain ext no edema CBC, BMP 02/13/18 06:21 02/13/18 06:21 ASSESSMENT AND PLAN: Providencia uti with pyuria and flank pain- continue ertapenem contact isolation for resistant organisms jimbo- continue ivf, no obstruction on ct scan, ?dehydration hiv- reports being undectable, will restart odefsey once crcl is greater then 30 Problem List - Problems (1) UTI (urinary tract infection) Code(s): N39.0 - URINARY TRACT INFECTION, SITE NOT SPECIFIED (2) JIMBO (acute kidney injury) Code(s): N17.9 - ACUTE KIDNEY FAILURE, UNSPECIFIED (3) HIV (human immunodeficiency virus infection) Code(s): B20 - HUMAN IMMUNODEFICIENCY VIRUS [HIV] DISEASE
[2018-02-13] MEDS: DEXTROSE 5%-0.45% SALINE 1,000 ML IV SCH ×3 (11:42→22:24)
[2018-02-13] MEDS: MULTIVITAMINS (DAILY MVI) TABLET (FP) PO SCH (11:42)
[2018-02-13] MEDS: ERTAPENEM SODIUM 0.5 GM in SODIUM CHLORIDE 100 ML IVPB SCH (12:54)
[2018-02-13] MEDS: CARBAMIDE PEROXIDE 6.5% OTIC 15 ML BOTTLE AU SCH ×2 (12:56→22:18)
[2018-02-13] MEDS ORDERED: PT OWN MED DRAWER 7, Y5N ONE (13:47)
--- NOTE | 2018-02-13 20:39 | PN ---
Progress Note, Physician - Current Medication List Current Medications: Active Medications Amlodipine Besylate (Norvasc -) 10 mg PO DAILY [facility] Last Admin: 02/13/18 10:27 Dose: 10 mg Carbamide Perox/Anhydrous Glycerin (Debrox -) 5 drop AU BID FATOU Stop: 02/15/18 12:29 Last Admin: 02/13/18 12:56 Dose: 5 drop Dextrose/Sodium Chloride (D5-1/2ns -) 1,000 mls @ 75 mls/hr IV ASDIR FATOU Last Admin: 02/13/18 11:42 Dose: 75 mls/hr Ertapenem 0.5 gm/ Sodium (Chloride) 100 mls @ 200 mls/hr IVPB DAILY [facility] PRN Reason: Protocol Last Admin: 02/13/18 12:54 Dose: 200 mls/hr Losartan Potassium (Cozaar -) 100 mg PO DAILY [facility] Last Admin: 02/13/18 10:27 Dose: 100 mg Multivitamins/Minerals/Vitamin C (Tab-A-Vit -) 1 tab PO DAILY [facility] Last Admin: 02/13/18 11:42 Dose: 1 tab Non-Formulary Medication (Emtricitab/Rilpiviri/Tenof Ala [Odefsey Tablet]) 1 tab PO DAILY [facility] - Objective Vital Signs: Vital Signs Temperature 97.5 F L 02/13/18 09:30 Pulse Rate 76 02/13/18 17:00 Respiratory Rate 18 02/13/18 17:00 Blood Pressure 120/70 02/13/18 17:00 O2 Sat by Pulse Oximetry (%) 100 02/13/18 09:00 Labs: CBC, BMP 02/13/18 06:21 02/13/18 06:21
[2018-02-13] MEDS ORDERED: MEROPENEM 500 MG PUSH 500 MG/10 ML DISP.SYRIN IVPUSH SCH (22:00)
[2018-02-14 08:29] LABS: CHLORIDE 107 mmol/L (98-107); POTASSIUM 4.3 mmol/L (3.5-5.1); SODIUM 141 mmol/L (136-145)
[2018-02-14 08:33] LABS: ANION GAP 10 (8-16); BLOOD UREA NITROGEN 29 mg/dL (7-18); CALCIUM 9.1 mg/dL (8.5-10.1); CO2 24 mmol/L (21-32); GLUCOSE,RANDOM 87 mg/dL (74-106)
--- NOTE | 2018-02-14 09:26 | PN ---
Progress Note (short form) - Note Progress Note: complaining of chronic right hip pain Vital Signs Period Temp Pulse Resp BP Sys/Sparks Pulse Ox Last 24 Hr 97.5 F-98.6 F 74-88 18-20 110-145/69-99 98-100 cor-rrr lungs clear abd soft,nt minimal left cvat ext no edema CBC, BMP 02/13/18 06:21 02/14/18 06:20 cultures pending a/p UTI- repeat cultures pending continue ertapenem jimbo improving continue ivf hiv- can resume hiv meds- spoke with nurse and pharmacy
[2018-02-14] MEDS: LOSARTAN POTASSIUM 50 MG TABLET (FP) PO SCH (10:02)
[2018-02-14] MEDS: ERTAPENEM SODIUM 0.5 GM in SODIUM CHLORIDE 100 ML IVPB SCH (10:02)
[2018-02-14] MEDS: amLODIPine BESYLATE 10 MG TABLET (FP) PO SCH (10:02)
[2018-02-14] MEDS: MULTIVITAMINS (DAILY MVI) TABLET (FP) PO SCH (10:02)
[2018-02-14] MEDS: CARBAMIDE PEROXIDE 6.5% OTIC 15 ML BOTTLE AU SCH ×2 (10:02→21:32)
[2018-02-14] MEDS: DEXTROSE 5%-0.45% SALINE 1,000 ML IV SCH (10:05)
--- NOTE | 2018-02-14 15:02 | CONSULT ---
Consult Consult Specialty:: Nephrology Reason for Consultation:: SIDNEY - History of Present Illness Chief Complaint: dysuria History of Present Illness: Pt is a 62 year old male with pmhx of HIV and polysubstance abuse who presents to the ER with dysuria and UTI. He is a poor historian. He denies history of CKD. He denies nsaid use. I was called to evaluate him for elevated creatinine which has been improving. He is a poor historian. He does not know which medications he was on. He denies dysuria or hematuria. He is awake and alert. - History Source History Provided By: Patient - Past Medical History Cardio/Vascular: Yes: HTN Infectious Disease: Yes: HIV - Alcohol/Substance Use Hx Alcohol Use: Yes - Smoking History Smoking history: Former smoker Have you smoked in the past 12 months: No Aproximately how many cigarettes per day: 3 Home Medications - Allergies Allergies/Adverse Reactions: Allergies Allergy/AdvReac Type Severity Reaction Status Date / Time No Known Allergies Allergy Verified 02/12/18 17:21 - Home Medications Home Medications: Ambulatory Orders Amlodipine Besylate 10 mg PO DAILY 02/05/18 Emtricitab/Rilpiviri/Tenof Ala [Odefsey Tablet] 1 tab PO DAILY 02/05/18 Losartan Potassium [Cozaar] 100 mg PO DAILY 02/05/18 Family Disease History - Family Disease History Family History: Denies Review of Systems - Review of Systems Constitutional: denies: Chills, Fever Eyes: reports: No Symptoms HENT: reports: No Symptoms Neck: reports: No Symptoms Cardiovascular: reports: No Symptoms Respiratory: reports: No Symptoms Gastrointestinal: reports: No Symptoms Genitourinary: reports: No Symptoms Musculoskeletal: reports: No Symptoms Integumentary: reports: No Symptoms Neurological: reports: No Symptoms Endocrine: reports: No Symptoms Hematology/Lymphatic: reports: No Symptoms Physical Exam Vital Signs: Vital Signs Temperature 98.1 F 02/14/18 08:34 Pulse Rate 88 02/14/18 08:34 Respiratory Rate 18 02/14/18 08:34 Blood Pressure 119/76 02/14/18 08:34 O2 Sat by Pulse Oximetry (%) 98 02/14/18 09:00 Constitutional: Yes: Calm Eyes: Yes: Conjunctiva Clear HENT: Yes: Atraumatic Neck: Yes: Supple Cardiovascular: Yes: S1, S2 Respiratory: Yes: CTA Bilaterally Gastrointestinal: Yes: Normal Bowel Sounds, Soft Renal/: Yes: WNL Musculoskeletal: Yes: WNL Edema: No Neurological: Yes: Oriented, Lethargy Psychiatric: Yes: Oriented Labs: CBC, BMP 02/13/18 06:21 02/14/18 06:20 Laboratory Tests 01/06/12 02/06/18 02/10/18 07:45 07:00 08:35 WBC Hgb Sodium Potassium Chloride Carbon Dioxide Anion Gap BUN Creatinine 1.1 3.3 H D 2.5 H D Urine Protein Urine Blood 02/12/18 02/12/18 02/13/18 17:55 18:00 06:21 WBC 3.9 L Hgb 10.7 L Sodium Potassium 5.2 H D Chloride Carbon Dioxide Anion Gap BUN Creatinine 2.5 H Urine Protein 2+ H Urine Blood Negative 02/13/18 02/14/18 06:21 06:20 WBC Hgb Sodium 141 Potassium 4.3 Chloride 107 Carbon Dioxide 24 Anion Gap 10 BUN 29 H Creatinine 2.2 H 2.0 H Urine Protein Urine Blood Imaging - Results Chest X-ray: Report Reviewed Cat Scan: Report Reviewed Problem List - Problems (1) Nephrolithiasis Code(s): N20.0 - CALCULUS OF KIDNEY (2) UTI (urinary tract infection) Code(s): N39.0 - URINARY TRACT INFECTION, SITE NOT SPECIFIED (3) Alcohol dependence Code(s): F10.20 - ALCOHOL DEPENDENCE, UNCOMPLICATED Qualifiers: (4) HIV (human immunodeficiency virus infection) Code(s): B20 - HUMAN IMMUNODEFICIENCY VIRUS [HIV] DISEASE (5) Hypertension Code(s): I10 - ESSENTIAL (PRIMARY) HYPERTENSION Qualifiers: Assessment/Plan Current Medications Generic Name Dose Route Start Last Admin Trade Name Freq PRN Reason Stop Dose Admin Amlodipine Besylate 10 mg 02/13/18 10:00 02/14/18 10:02 Norvasc - PO 10 mg DAILY FATOU Administration Carbamide Perox/Anhydrous Glycerin 5 drop 02/13/18 12:30 02/14/18 10:02 Debrox - AU 02/15/18 12:29 5 drop BID FATOU Administration Dextrose/Sodium Chloride 1,000 mls @ 75 mls/hr 02/12/18 20:45 02/14/18 10:05 D5-1/2ns - IV 75 mls/hr ASDIR FATOU Administration Ertapenem 0.5 gm/ Sodium 100 mls @ 200 mls/hr 02/13/18 12:30 02/14/18 10:02 Chloride IVPB 200 mls/hr DAILY FATOU Administration Protocol Losartan Potassium 100 mg 02/13/18 10:00 02/14/18 10:02 Cozaar - PO 100 mg DAILY FATOU Administration Multivitamins/Minerals/Vitamin C 1 tab 02/13/18 11:15 02/14/18 10:02 Tab-A-Vit - PO 1 tab DAILY FATOU Administration Non-Formulary Medication 1 tab 02/13/18 10:00 Emtricitab/Rilpiviri/Tenof Ala [Odefsey Tablet] PO DAILY FATOU Impression 1. SIDNEY 2. HIV 3. HTN 4. UTI 5. nephrolithiasis 6. hyperkalemia Plan - renal function is improving - change fluids to 1/2 ns - repeat ua - will need outpt renal workup - abx per ID - can cont losartan as his numbers are improving and potassium is stable - will follow pt - check prt to [employer] ratio Dr Mora
[2018-02-14] MEDS: SODIUM CHLORIDE 0.45% 1,000 ML IV SCH (15:22)
--- NOTE | 2018-02-14 17:07 | PN ---
Progress Note, Physician Chief Complaint: ASLEEP EVENTS AND CHARTS REVIEWED NO DISTRESS - Current Medication List Current Medications: Active Medications Amlodipine Besylate (Norvasc -) 10 mg PO DAILY [facility]PLACED BY [facility] Last Admin: 02/14/18 10:02 Dose: 10 mg Carbamide Perox/Anhydrous Glycerin (Debrox -) 5 drop AU BID [facility] Stop: 02/15/18 12:29 Last Admin: 02/14/18 10:02 Dose: 5 drop Ertapenem 0.5 gm/ Sodium (Chloride) 100 mls @ 200 mls/hr IVPB DAILY [facility] PRN Reason: Protocol Last Admin: 02/14/18 10:02 Dose: 200 mls/hr Sodium Chloride (1/2 Normal Saline) 1,000 mls @ 83 mls/hr IV ASDIR REPLACED BY [facility] Last Admin: 02/14/18 15:22 Dose: 83 mls/hr Losartan Potassium (Cozaar -) 100 mg PO DAILY REPLACED BY [facility] Last Admin: 02/14/18 10:02 Dose: 100 mg Multivitamins/Minerals/Vitamin C (Tab-A-Vit -) 1 tab PO DAILY REPLACED BY [facility] Last Admin: 02/14/18 10:02 Dose: 1 tab Non-Formulary Medication (Emtricitab/Rilpiviri/Tenof Ala [Odefsey Tablet]) 1 tab PO DAILY REPLACED BY [facility] - Objective Vital Signs: Vital Signs Temperature 97.7 F 02/14/18 15:17 Pulse Rate 74 02/14/18 15:17 Respiratory Rate 18 02/14/18 15:17 Blood Pressure 121/87 02/14/18 15:17 O2 Sat by Pulse Oximetry (%) 98 02/14/18 09:00 Constitutional: Yes: Mild Distress Eyes: Yes: WNL HENT: Yes: WNL Neck: Yes: WNL Cardiovascular: Yes: WNL Respiratory: Yes: WNL Gastrointestinal: Yes: WNL Genitourinary: Yes: WNL Musculoskeletal: Yes: Muscle Weakness Extremities: Yes: WNL Edema: No Peripheral Pulses WNL: Yes Integumentary: Yes: WNL Wound/Incision: Yes: Clean/Dry Neurological: Yes: Pre-Existing Deficit ...Motor Strength: LLE, RLE Psychiatric: Yes: Other Labs: CBC, BMP 02/13/18 06:21 02/14/18 06:20 Problem List - Problems (1) DVT prophylaxis Code(s): [id number] - (2) Nephrolithiasis Code(s): N20.0 - CALCULUS OF KIDNEY (3) UTI (urinary tract infection) Code(s): N39.0 - URINARY TRACT INFECTION, SITE NOT SPECIFIED (4) Alcohol dependence Code(s): F10.20 - ALCOHOL DEPENDENCE, UNCOMPLICATED Qualifiers: (5) Urinary tract bacterial infections Code(s): N39.0 - URINARY TRACT INFECTION, SITE NOT SPECIFIED; A49.9 - BACTERIAL INFECTION, UNSPECIFIED (6) HIV (human immunodeficiency virus infection) Code(s): B20 - HUMAN IMMUNODEFICIENCY VIRUS [HIV] DISEASE (7) Hypertension Code(s): I10 - ESSENTIAL (PRIMARY) HYPERTENSION Qualifiers: Assessment/Plan ID F/U FOR UTI HIV? D/W ID NEPHROLOGY ARF IMPROVED OOB TO CHAIR C/O HIP PAIN CT ABD/PELVIS REVIEWED NO ACUTE CHANGES
[2018-02-14 17:47] LABS: URINE CREATININE 31.3 mg/dL (20-370)
[2018-02-14 17:48] LABS: RATIO URIN PROTEIN/URIN CREAT 0.958 MG/DL
[2018-02-14] MEDS ORDERED: PT OWN MED DRAWER 7, Y5N ONE (21:37)
[2018-02-15] MEDS: SODIUM CHLORIDE 0.45% 1,000 ML IV SCH ×2 (05:48→17:08)
[2018-02-15 08:16] LABS: ALBUMIN 3.3 g/dl (3.4-5.0); ALK PHOS 98 U/L (45-117); ANION GAP 7 (8-16); BLOOD UREA NITROGEN 23 mg/dL (7-18); CALCIUM 8.7 mg/dL (8.5-10.1); CHLORIDE 108 mmol/L (98-107); CO2 24 mmol/L (21-32); CREATININE 1.9 mg/dL (0.7-1.3); GLUCOSE,RANDOM 84 mg/dL (74-106); POTASSIUM 4.3 mmol/L (3.5-5.1); SGOT/AST 23 U/L (15-37); SGPT/ALT 22 U/L (12-78); SODIUM 139 mmol/L (136-145)
[2018-02-15 08:17] LABS: BILIRUBIN,TOTAL 0.5 mg/dL (0.2-1.0); TOT PROT 8.6 g/dl (6.4-8.2)
[2018-02-15] MEDS: LOSARTAN POTASSIUM 50 MG TABLET (FP) PO SCH (10:04)
[2018-02-15] MEDS: MULTIVITAMINS (DAILY MVI) TABLET (FP) PO SCH (10:04)
[2018-02-15] MEDS: CARBAMIDE PEROXIDE 6.5% OTIC 15 ML BOTTLE AU SCH (10:06)
[2018-02-15] MEDS: ERTAPENEM SODIUM 0.5 GM in SODIUM CHLORIDE 100 ML IVPB SCH (10:06)
[2018-02-15] MEDS: amLODIPine BESYLATE 10 MG TABLET (FP) PO SCH (10:09)
[2018-02-15] MEDS ORDERED: oxyCODONE HCL 5 MG TABLET PO ONE ×2 (10:45→11:00)
--- NOTE | 2018-02-15 12:56 | PN ---
Progress Note, Physician - Current Medication List Current Medications: Active Medications Amlodipine Besylate (Norvasc -) 10 mg PO DAILY [facility] Last Admin: 02/15/18 10:09 Dose: 10 mg Ertapenem 0.5 gm/ Sodium (Chloride) 100 mls @ 200 mls/hr IVPB DAILY [facility] PRN Reason: Protocol Last Admin: 02/15/18 10:06 Dose: 200 mls/hr Sodium Chloride (1/2 Normal Saline) 1,000 mls @ 83 mls/hr IV ASDIR [facility] Last Admin: 02/15/18 05:48 Dose: 83 mls/hr Losartan Potassium (Cozaar -) 100 mg PO DAILY [facility] Last Admin: 02/15/18 10:04 Dose: 100 mg Multivitamins/Minerals/Vitamin C (Tab-A-Vit -) 1 tab PO DAILY [facility] Last Admin: 02/15/18 10:04 Dose: 1 tab Non-Formulary Medication (Emtricitab/Rilpiviri/Tenof Ala [Odefsey Tablet]) 1 tab PO DAILY [facility] - Objective Vital Signs: Vital Signs Temperature 98.9 F 02/15/18 08:31 Pulse Rate 86 02/15/18 08:31 Respiratory Rate 20 02/15/18 08:31 Blood Pressure 122/84 02/15/18 08:31 O2 Sat by Pulse Oximetry (%) 96 02/15/18 08:57 Labs: CBC, BMP 02/13/18 06:21 02/15/18 07:00 Problem List - Problems (1) DVT prophylaxis Code(s): [id number] - (2) Nephrolithiasis Code(s): N20.0 - CALCULUS OF KIDNEY (3) UTI (urinary tract infection) Code(s): N39.0 - URINARY TRACT INFECTION, SITE NOT SPECIFIED (4) Alcohol dependence Code(s): F10.20 - ALCOHOL DEPENDENCE, UNCOMPLICATED Qualifiers: (5) Urinary tract bacterial infections Code(s): N39.0 - URINARY TRACT INFECTION, SITE NOT SPECIFIED; A49.9 - BACTERIAL INFECTION, UNSPECIFIED (6) HIV (human immunodeficiency virus infection) Code(s): B20 - HUMAN IMMUNODEFICIENCY VIRUS [HIV] DISEASE (7) Hypertension Code(s): I10 - ESSENTIAL (PRIMARY) HYPERTENSION Qualifiers:
--- NOTE | 2018-02-15 13:00 | PN ---
Progress Note, Physician Chief Complaint: ASLEEP EVENTS AND CHARTS REVIEWED NO DISTRESS - Current Medication List Current Medications: Active Medications Amlodipine Besylate (Norvasc -) 10 mg PO DAILY [facility] Last Admin: 02/15/18 10:09 Dose: 10 mg Ertapenem 0.5 gm/ Sodium (Chloride) 100 mls @ 200 mls/hr IVPB DAILY [facility] PRN Reason: Protocol Last Admin: 02/15/18 10:06 Dose: 200 mls/hr Sodium Chloride (1/2 Normal Saline) 1,000 mls @ 83 mls/hr IV ASDIR [facility] Last Admin: 02/15/18 05:48 Dose: 83 mls/hr Losartan Potassium (Cozaar -) 100 mg PO DAILY [facility] Last Admin: 02/15/18 10:04 Dose: 100 mg Multivitamins/Minerals/Vitamin C (Tab-A-Vit -) 1 tab PO DAILY [facility] Last Admin: 02/15/18 10:04 Dose: 1 tab Non-Formulary Medication (Emtricitab/Rilpiviri/Tenof Ala [Odefsey Tablet]) 1 tab PO DAILY [facility] Oxycodone HCl (Roxicodone -) 5 mg PO Q6H PRN PRN Reason: PAIN LEVEL 6-10 - Objective Vital Signs: Vital Signs Temperature 98.9 F 02/15/18 08:31 Pulse Rate 86 02/15/18 08:31 Respiratory Rate 20 02/15/18 08:31 Blood Pressure 122/84 02/15/18 08:31 O2 Sat by Pulse Oximetry (%) 96 02/15/18 08:57 Constitutional: Yes: Mild Distress Eyes: Yes: WNL HENT: Yes: WNL Neck: Yes: WNL Respiratory: Yes: WNL Gastrointestinal: Yes: WNL Genitourinary: Yes: WNL Musculoskeletal: Yes: Muscle Pain Extremities: Yes: WNL Edema: No Peripheral Pulses WNL: Yes Integumentary: Yes: WNL Wound/Incision: Yes: Clean/Dry Neurological: Yes: Pre-Existing Deficit ...Motor Strength: RLE Labs: CBC, BMP 02/13/18 06:21 02/15/18 07:00 Problem List - Problems (1) DVT prophylaxis Code(s): [id number] - (2) Nephrolithiasis Code(s): N20.0 - CALCULUS OF KIDNEY (3) UTI (urinary tract infection) Code(s): N39.0 - URINARY TRACT INFECTION, SITE NOT SPECIFIED (4) Alcohol dependence Code(s): F10.20 - ALCOHOL DEPENDENCE, UNCOMPLICATED Qualifiers: (5) Urinary tract bacterial infections Code(s): N39.0 - URINARY TRACT INFECTION, SITE NOT SPECIFIED; A49.9 - BACTERIAL INFECTION, UNSPECIFIED (6) HIV (human immunodeficiency virus infection) Code(s): B20 - HUMAN IMMUNODEFICIENCY VIRUS [HIV] DISEASE (7) Hypertension Code(s): I10 - ESSENTIAL (PRIMARY) HYPERTENSION Qualifiers: Assessment/Plan ID F/U FOR UTI HIV? D/W ID NEPHROLOGY ARF IMPROVED OOB TO CHAIR C/O HIP PAIN CT ABD/PELVIS REVIEWED NO ACUTE CHANGES REFUSED HIP XRAY TOLERATING OXYCODONE PRN
--- NOTE | 2018-02-15 14:30 | PN ---
Progress Note, Physician History of Present Illness: Supine in bed No complaints Denies dysuria Afebrile Leukopenic Azotemia improved - Current Medication List Current Medications: Active Medications Amlodipine Besylate (Norvasc -) 10 mg PO DAILY [facility] Last Admin: 02/15/18 10:09 Dose: 10 mg Ertapenem 0.5 gm/ Sodium (Chloride) 100 mls @ 200 mls/hr IVPB DAILY [facility] PRN Reason: Protocol Last Admin: 02/15/18 10:06 Dose: 200 mls/hr Sodium Chloride (1/2 Normal Saline) 1,000 mls @ 83 mls/hr IV ASDIR [facility] Last Admin: 02/15/18 05:48 Dose: 83 mls/hr Losartan Potassium (Cozaar -) 100 mg PO DAILY [facility] Last Admin: 02/15/18 10:04 Dose: 100 mg Multivitamins/Minerals/Vitamin C (Tab-A-Vit -) 1 tab PO DAILY [facility] Last Admin: 02/15/18 10:04 Dose: 1 tab Non-Formulary Medication (Emtricitab/Rilpiviri/Tenof Ala [Odefsey Tablet]) 1 tab PO DAILY [facility] Oxycodone HCl (Roxicodone -) 5 mg PO Q6H PRN PRN Reason: PAIN LEVEL 6-10 - Objective Vital Signs: Vital Signs Temperature 97.9 F 02/15/18 14:23 Pulse Rate 75 02/15/18 14:23 Respiratory Rate 20 02/15/18 14:23 Blood Pressure 117/80 02/15/18 14:23 O2 Sat by Pulse Oximetry (%) 96 02/15/18 08:57 Constitutional: Yes: No Distress Eyes: Yes: Conjunctiva Clear Cardiovascular: Yes: Regular Rate and Rhythm, S1, S2 Respiratory: Yes: CTA Bilaterally Gastrointestinal: Yes: Normal Bowel Sounds, Soft. No: Tenderness Labs: CBC, BMP 02/13/18 06:21 02/15/18 07:00 Assessment/Plan UTI Hx MDR Providencia UTI Azotemia Leukopenia HIV + Continue ertapenem Await c/s
--- NOTE | 2018-02-15 16:24 | PN ---
Progress Note, Physician History of Present Illness: Pt seen and examined at bedside. He is awake and alert. He is tolerating diet. - Current Medication List Current Medications: Active Medications Amlodipine Besylate (Norvasc -) 10 mg PO DAILY [facility] Last Admin: 02/15/18 10:09 Dose: 10 mg Ertapenem 0.5 gm/ Sodium (Chloride) 100 mls @ 200 mls/hr IVPB DAILY [facility] PRN Reason: Protocol Last Admin: 02/15/18 10:06 Dose: 200 mls/hr Sodium Chloride (1/2 Normal Saline) 1,000 mls @ 83 mls/hr IV ASDIR [facility] Last Admin: 02/15/18 05:48 Dose: 83 mls/hr Losartan Potassium (Cozaar -) 100 mg PO DAILY [facility] Last Admin: 02/15/18 10:04 Dose: 100 mg Multivitamins/Minerals/Vitamin C (Tab-A-Vit -) 1 tab PO DAILY [facility] Last Admin: 02/15/18 10:04 Dose: 1 tab Non-Formulary Medication (Emtricitab/Rilpiviri/Tenof Ala [Odefsey Tablet]) 1 tab PO DAILY [facility] Oxycodone HCl (Roxicodone -) 5 mg PO Q6H PRN PRN Reason: PAIN LEVEL 6-10 - Objective Vital Signs: Vital Signs Temperature 97.9 F 02/15/18 14:23 Pulse Rate 75 02/15/18 14:23 Respiratory Rate 20 02/15/18 14:23 Blood Pressure 117/80 02/15/18 14:23 O2 Sat by Pulse Oximetry (%) 96 02/15/18 08:57 Constitutional: Yes: Calm Eyes: Yes: Conjunctiva Clear HENT: Yes: Atraumatic Neck: Yes: Supple Cardiovascular: Yes: S1, S2 Respiratory: Yes: CTA Bilaterally Gastrointestinal: Yes: Soft Musculoskeletal: Yes: WNL Extremities: Yes: WNL Edema: No Neurological: Yes: Oriented Psychiatric: Yes: Oriented Labs: CBC, BMP 02/13/18 06:21 02/15/18 07:00 Problem List - Problems (1) Nephrolithiasis Code(s): N20.0 - CALCULUS OF KIDNEY (2) UTI (urinary tract infection) Code(s): N39.0 - URINARY TRACT INFECTION, SITE NOT SPECIFIED (3) Alcohol dependence Code(s): F10.20 - ALCOHOL DEPENDENCE, UNCOMPLICATED Qualifiers: (4) HIV (human immunodeficiency virus infection) Code(s): B20 - HUMAN IMMUNODEFICIENCY VIRUS [HIV] DISEASE (5) Hypertension Code(s): I10 - ESSENTIAL (PRIMARY) HYPERTENSION Qualifiers: Assessment/Plan Current Medications Generic Name Dose Route Start Last Admin Trade Name Freq PRN Reason Stop Dose Admin Amlodipine Besylate 10 mg 02/13/18 10:00 02/15/18 10:09 Norvasc - PO 10 mg DAILY [facility] Administration Ertapenem 0.5 gm/ Sodium 100 mls @ 200 mls/hr 02/13/18 12:30 02/15/18 10:06 Chloride IVPB 200 mls/hr DAILY [facility] Administration Protocol Sodium Chloride 1,000 mls @ 83 mls/hr 02/14/18 15:15 02/15/18 05:48 1/2 Normal Saline IV 83 mls/hr ASDIR [facility] Administration Losartan Potassium 100 mg 02/13/18 10:00 02/15/18 10:04 Cozaar - PO 100 mg DAILY [facility] Administration Multivitamins/Minerals/Vitamin C 1 tab 02/13/18 11:15 02/15/18 10:04 Tab-A-Vit - PO 1 tab DAILY [facility] Administration Non-Formulary Medication 1 tab 02/13/18 10:00 Emtricitab/Rilpiviri/Tenof Ala [Odefsey Tablet] PO DAILY [facility] Oxycodone HCl 5 mg 02/15/18 12:56 Roxicodone - PO Q6H PRN PAIN LEVEL 6-10 Laboratory Tests 02/14/18 15:15 Protein/Creatinin Ratio 0.958 Impression 1. SIDNEY 2. HIV 3. HTN 4. UTI 5. nephrolithiasis 6. hyperkalemia Plan - cont fluids - renal function is improving - will keep on losartan - will need outpt follow up - repeat labs in am - abx for UTI Dr Mora
[2018-02-15] MEDS: oxyCODONE HCL 5 MG TABLET PO PRN (19:04)
[2018-02-16] MEDS: SODIUM CHLORIDE 0.45% 1,000 ML IV SCH ×3 (04:22→18:47)
[2018-02-16] MEDS ORDERED: PT OWN MED DRAWER 7, Y5N ONE (09:21)
[2018-02-16] MEDS: LOSARTAN POTASSIUM 50 MG TABLET (FP) PO SCH (09:30)
[2018-02-16] MEDS: MULTIVITAMINS (DAILY MVI) TABLET (FP) PO SCH (09:30)
[2018-02-16] MEDS: amLODIPine BESYLATE 10 MG TABLET (FP) PO SCH (09:30)
[2018-02-16] MEDS: oxyCODONE HCL 5 MG TABLET PO PRN ×2 (09:45→18:46)
[2018-02-16] MEDS: ERTAPENEM SODIUM 0.5 GM in SODIUM CHLORIDE 100 ML IVPB SCH (10:44)
--- NOTE | 2018-02-16 11:30 | PN ---
Progress Note, Physician Chief Complaint: Complicated UTI - Current Medication List Current Medications: Active Medications Amlodipine Besylate (Norvasc -) 10 mg PO DAILY [facility] Last Admin: 02/16/18 09:30 Dose: 10 mg Ertapenem 0.5 gm/ Sodium (Chloride) 100 mls @ 200 mls/hr IVPB DAILY [facility] PRN Reason: Protocol Last Admin: 02/16/18 10:44 Dose: 200 mls/hr Sodium Chloride (1/2 Normal Saline) 1,000 mls @ 83 mls/hr IV ASDIR [facility] Last Admin: 02/16/18 04:23 Dose: 83 mls/hr Losartan Potassium (Cozaar -) 100 mg PO DAILY [facility] Last Admin: 02/16/18 09:30 Dose: 100 mg Multivitamins/Minerals/Vitamin C (Tab-A-Vit -) 1 tab PO DAILY [facility] Last Admin: 02/16/18 09:30 Dose: 1 tab Non-Formulary Medication (Emtricitab/Rilpiviri/Tenof Ala [Odefsey Tablet]) 1 tab PO DAILY [facility] Oxycodone HCl (Roxicodone -) 5 mg PO Q6H PRN PRN Reason: PAIN LEVEL 6-10 Last Admin: 02/16/18 09:45 Dose: 5 mg - Objective Vital Signs: Vital Signs Temperature 98.0 F 02/16/18 08:40 Pulse Rate 74 02/16/18 08:40 Respiratory Rate 18 02/16/18 08:40 Blood Pressure 135/95 02/16/18 08:40 O2 Sat by Pulse Oximetry (%) 97 02/15/18 22:00 Constitutional: Yes: No Distress, Anxious, Cachectic Cardiovascular: Yes: Regular Rate and Rhythm Respiratory: Yes: Regular Gastrointestinal: Yes: Normal Bowel Sounds, Soft Musculoskeletal: Yes: Muscle Weakness Edema: No Peripheral Pulses WNL: Yes Neurological: Yes: Alert, Oriented Psychiatric: Yes: Alert, Oriented Labs: CBC, BMP 02/13/18 06:21 02/15/18 07:00 Problem List - Problems (1) SIDNEY (acute kidney injury) Assessment/Plan: -nephrology on board -gradually improving -IVF -workup outpatient Code(s): N17.9 - ACUTE KIDNEY FAILURE, UNSPECIFIED (2) UTI (urinary tract infection) Assessment/Plan: -ID on baord -IV abx uc: Microbiology 02/12/18 22:20 Blood - Peripheral Venous Blood Culture - Preliminary NO GROWTH OBTAINED AFTER 96 HOURS, INCUBATION TO CONTINUE FOR 1 DAYS. 02/12/18 22:15 Blood - Peripheral Venous Blood Culture - Preliminary NO GROWTH OBTAINED AFTER 96 HOURS, INCUBATION TO CONTINUE FOR 1 DAYS. 02/12/18 18:00 Urine - Urine Clean Catch Urine Culture - Final Providencia Rettgeri Code(s): N39.0 - URINARY TRACT INFECTION, SITE NOT SPECIFIED (3) HIV (human immunodeficiency virus infection) Assessment/Plan: -resumed HIV meds -ID consult appreciated Code(s): B20 - HUMAN IMMUNODEFICIENCY VIRUS [HIV] DISEASE Assessment/Plan see problem list
--- NOTE | 2018-02-16 11:47 | PN ---
Progress Note (short form) - Note Progress Note: complaining of chronic right hip pain Vital Signs Period Temp Pulse Resp BP Sys/Sparks Pulse Ox Last 24 Hr 97.5 F-98.2 F 65-78 16-20 117-147/80-95 97 cor-rrr lungs clear abd soft,nt no cvat ext no edema CBC, BMP 02/13/18 06:21 02/15/18 07:00 Microbiology 02/12/18 22:15 Blood - Peripheral Venous Blood Culture - Preliminary NO GROWTH OBTAINED AFTER 72 HOURS, INCUBATION TO CONTINUE FOR 2 DAYS. 02/12/18 22:20 Blood - Peripheral Venous Blood Culture - Preliminary NO GROWTH OBTAINED AFTER 72 HOURS, INCUBATION TO CONTINUE FOR 2 DAYS. 02/12/18 18:00 Urine - Urine Clean Catch Urine Culture - Preliminary Non Lactose Fermenting Gnb a/p UTI- repeat cultures pending continue ertapenem day #5 of 7 jimbo improving continue ivf hiv- can resume hiv meds- spoke with nurse and pharmacy to resume today
[2018-02-16] MEDS: EMTRICITAB/RILPIVIRI/TENOF ALA (ODEFSEY) TABLET PO SCH (12:14)
--- NOTE | 2018-02-16 12:43 | PN ---
Progress Note, Physician History of Present Illness: Pt seen and examined at bedside. He is awake and alert. He denies shortness of breath. - Current Medication List Current Medications: Active Medications Amlodipine Besylate (Norvasc -) 10 mg PO DAILY [facility] Last Admin: 02/16/18 09:30 Dose: 10 mg Ertapenem 0.5 gm/ Sodium (Chloride) 100 mls @ 200 mls/hr IVPB DAILY [facility] PRN Reason: Protocol Last Admin: 02/16/18 10:44 Dose: 200 mls/hr Sodium Chloride (1/2 Normal Saline) 1,000 mls @ 83 mls/hr IV ASDIR [facility] Last Admin: 02/16/18 04:23 Dose: 83 mls/hr Losartan Potassium (Cozaar -) 100 mg PO DAILY [facility] Last Admin: 02/16/18 09:30 Dose: 100 mg Multivitamins/Minerals/Vitamin C (Tab-A-Vit -) 1 tab PO DAILY [facility] Last Admin: 02/16/18 09:30 Dose: 1 tab Oxycodone HCl (Roxicodone -) 5 mg PO Q6H PRN PRN Reason: PAIN LEVEL 6-10 Last Admin: 02/16/18 09:45 Dose: 5 mg - Objective Vital Signs: Vital Signs Temperature 98.0 F 02/16/18 08:40 Pulse Rate 74 02/16/18 08:40 Respiratory Rate 18 02/16/18 08:40 Blood Pressure 135/95 02/16/18 08:40 O2 Sat by Pulse Oximetry (%) 97 02/16/18 09:00 Constitutional: Yes: Calm Eyes: Yes: Conjunctiva Clear HENT: Yes: Atraumatic Cardiovascular: Yes: S1, S2 Respiratory: Yes: CTA Bilaterally Gastrointestinal: Yes: Normal Bowel Sounds, Soft Genitourinary: Yes: WNL Musculoskeletal: Yes: WNL Extremities: Yes: WNL Edema: No Neurological: Yes: Oriented Psychiatric: Yes: Oriented Labs: CBC, BMP 02/13/18 06:21 02/15/18 07:00 Problem List - Problems (1) Nephrolithiasis Code(s): N20.0 - CALCULUS OF KIDNEY (2) UTI (urinary tract infection) Code(s): N39.0 - URINARY TRACT INFECTION, SITE NOT SPECIFIED (3) Alcohol dependence Code(s): F10.20 - ALCOHOL DEPENDENCE, UNCOMPLICATED Qualifiers: (4) HIV (human immunodeficiency virus infection) Code(s): B20 - HUMAN IMMUNODEFICIENCY VIRUS [HIV] DISEASE (5) Hypertension Code(s): I10 - ESSENTIAL (PRIMARY) HYPERTENSION Qualifiers: Assessment/Plan Current Medications Generic Name Dose Route Start Last Admin Trade Name Freq PRN Reason Stop Dose Admin Amlodipine Besylate 10 mg 02/13/18 10:00 02/16/18 09:30 Norvasc - PO 10 mg DAILY [facility] Administration Ertapenem 0.5 gm/ Sodium 100 mls @ 200 mls/hr 02/13/18 12:30 02/16/18 10:44 Chloride IVPB 200 mls/hr DAILY [facility] Administration Protocol Sodium Chloride 1,000 mls @ 83 mls/hr 02/14/18 15:15 02/16/18 04:23 1/2 Normal Saline IV 83 mls/hr ASDIR [facility] Administration Losartan Potassium 100 mg 02/13/18 10:00 02/16/18 09:30 Cozaar - PO 100 mg DAILY [facility] Administration Multivitamins/Minerals/Vitamin C 1 tab 02/13/18 11:15 02/16/18 09:30 Tab-A-Vit - PO 1 tab DAILY [facility] Administration Oxycodone HCl 5 mg 02/15/18 12:56 02/16/18 09:45 Roxicodone - PO 5 mg Q6H PRN Administration PAIN LEVEL 6-10 Impression 1. SIDNEY 2. HIV 3. HTN 4. UTI 5. nephrolithiasis 6. hyperkalemia Plan - renal function is improving - cont with fluids - cont losartan - will need outpt workup - abx for UTI - discussed plan with pt Dr Mora
[2018-02-17] MEDS: SODIUM CHLORIDE 0.45% 1,000 ML IV SCH ×2 (06:14→17:50)
[2018-02-17 08:08] LABS: CHLORIDE 106 mmol/L (98-107); POTASSIUM 4.3 mmol/L (3.5-5.1); SODIUM 139 mmol/L (136-145)
[2018-02-17 08:14] LABS: ALBUMIN 3.2 g/dl (3.4-5.0); ALK PHOS 91 U/L (45-117); ANION GAP 11 (8-16); BILIRUBIN,TOTAL 0.3 mg/dL (0.2-1.0); BLOOD UREA NITROGEN 22 mg/dL (7-18); CALCIUM 8.8 mg/dL (8.5-10.1); CO2 22 mmol/L (21-32); GLUCOSE,RANDOM 91 mg/dL (74-106); SGOT/AST 25 U/L (15-37); SGPT/ALT 22 U/L (12-78); TOT PROT 8.3 g/dl (6.4-8.2)
--- NOTE | 2018-02-17 11:12 | PN ---
Progress Note, Physician Chief Complaint: Complicated UTI History of Present Illness: NAD, in bed seen by ID and Renal for UTI and SIDNEY on IV abx day 6 of 7 - Current Medication List Current Medications: Active Medications Amlodipine Besylate (Norvasc -) 10 mg PO DAILY [facility] Last Admin: 02/16/18 09:30 Dose: 10 mg Ertapenem 0.5 gm/ Sodium (Chloride) 100 mls @ 200 mls/hr IVPB DAILY [facility] PRN Reason: Protocol Last Admin: 02/16/18 10:44 Dose: 200 mls/hr Sodium Chloride (1/2 Normal Saline) 1,000 mls @ 83 mls/hr IV ASDIR [facility] Last Admin: 02/17/18 06:14 Dose: 83 mls/hr Losartan Potassium (Cozaar -) 100 mg PO DAILY [facility] Last Admin: 02/16/18 09:30 Dose: 100 mg Multivitamins/Minerals/Vitamin C (Tab-A-Vit -) 1 tab PO DAILY [facility] Last Admin: 02/16/18 09:30 Dose: 1 tab Oxycodone HCl (Roxicodone -) 5 mg PO Q6H PRN PRN Reason: PAIN LEVEL 6-10 Last Admin: 02/16/18 18:46 Dose: 5 mg - Objective Vital Signs: Vital Signs Temperature 98.2 F 02/17/18 06:00 Pulse Rate 75 02/17/18 06:00 Respiratory Rate 18 02/17/18 06:00 Blood Pressure 149/96 02/17/18 06:00 O2 Sat by Pulse Oximetry (%) 98 02/16/18 21:00 Constitutional: Yes: No Distress, Calm, Cachectic Cardiovascular: Yes: Regular Rate and Rhythm Respiratory: Yes: Regular Gastrointestinal: Yes: Normal Bowel Sounds, Soft Musculoskeletal: Yes: Muscle Weakness Edema: No Peripheral Pulses WNL: Yes Neurological: Yes: Alert, Oriented Psychiatric: Yes: Alert, Oriented Labs: CBC, BMP 02/13/18 06:21 02/17/18 06:30 Problem List - Problems (1) SIDNEY (acute kidney injury) Assessment/Plan: -nephrology on board -gradually improving -IVF -workup outpatient Code(s): N17.9 - ACUTE KIDNEY FAILURE, UNSPECIFIED (2) UTI (urinary tract infection) Assessment/Plan: -ID on baord -IV abx uc: Microbiology 02/12/18 22:20 Blood - Peripheral Venous Blood Culture - Preliminary NO GROWTH OBTAINED AFTER 96 HOURS, INCUBATION TO CONTINUE FOR 1 DAYS. 02/12/18 22:15 Blood - Peripheral Venous Blood Culture - Preliminary NO GROWTH OBTAINED AFTER 96 HOURS, INCUBATION TO CONTINUE FOR 1 DAYS. 02/12/18 18:00 Urine - Urine Clean Catch Urine Culture - Final Providencia Rettgeri Code(s): N39.0 - URINARY TRACT INFECTION, SITE NOT SPECIFIED (3) HIV (human immunodeficiency virus infection) Assessment/Plan: -resumed HIV meds -ID consult appreciated Code(s): B20 - HUMAN IMMUNODEFICIENCY VIRUS [HIV] DISEASE Assessment/Plan see problem list physical therapy dvt prophylaxis
[2018-02-17] MEDS ORDERED: PT OWN MED DRAWER 7, Y5N ONE (11:21)
[2018-02-17] MEDS: ERTAPENEM SODIUM 0.5 GM in SODIUM CHLORIDE 100 ML IVPB SCH (11:58)
[2018-02-17] MEDS: MULTIVITAMINS (DAILY MVI) TABLET (FP) PO SCH (12:00)
[2018-02-17] MEDS: LOSARTAN POTASSIUM 50 MG TABLET (FP) PO SCH (12:00)
[2018-02-17] MEDS: EMTRICITAB/RILPIVIRI/TENOF ALA (ODEFSEY) TABLET PO SCH (12:02)
[2018-02-17] MEDS: amLODIPine BESYLATE 10 MG TABLET (FP) PO SCH (12:05)
[2018-02-17] MEDS: HEPARIN NA (PORCINE) 5,000 UNITS/ML 1ML VIAL SQ SCH ×3 (12:06→21:24)
[2018-02-17] MEDS: oxyCODONE HCL 5 MG TABLET PO PRN ×2 (12:06→19:05)
--- NOTE | 2018-02-17 16:55 | PN ---
Progress Note, Physician History of Present Illness: Pt seen and examined at bedside. He is awake and alert. He wants to be discharged. - Current Medication List Current Medications: Active Medications Amlodipine Besylate (Norvasc -) 10 mg PO DAILY [facility] Last Admin: 02/17/18 12:05 Dose: 10 mg Heparin Sodium (Porcine) (Heparin -) 5,000 unit SQ BID [facility] Last Admin: 02/17/18 12:06 Dose: Not Given Ertapenem 0.5 gm/ Sodium (Chloride) 100 mls @ 200 mls/hr IVPB DAILY [facility] PRN Reason: Protocol Last Admin: 02/17/18 11:58 Dose: 200 mls/hr Sodium Chloride (1/2 Normal Saline) 1,000 mls @ 83 mls/hr IV ASDIR [facility] Last Admin: 02/17/18 06:14 Dose: 83 mls/hr Losartan Potassium (Cozaar -) 100 mg PO DAILY [facility] Last Admin: 02/17/18 12:00 Dose: 100 mg Multivitamins/Minerals/Vitamin C (Tab-A-Vit -) 1 tab PO DAILY [facility] Last Admin: 02/17/18 12:00 Dose: 1 tab Oxycodone HCl (Roxicodone -) 5 mg PO Q6H PRN PRN Reason: PAIN LEVEL 6-10 Last Admin: 02/17/18 12:06 Dose: 5 mg - Objective Vital Signs: Vital Signs Temperature 97.4 F L 02/17/18 14:00 Pulse Rate 78 02/17/18 14:00 Respiratory Rate 20 02/17/18 14:00 Blood Pressure 128/88 02/17/18 14:00 O2 Sat by Pulse Oximetry (%) 98 02/16/18 21:00 Constitutional: Yes: Calm Eyes: Yes: Conjunctiva Clear HENT: Yes: Atraumatic Neck: Yes: Supple Cardiovascular: Yes: S1, S2 Respiratory: Yes: CTA Bilaterally Gastrointestinal: Yes: Normal Bowel Sounds, Soft Genitourinary: Yes: WNL Musculoskeletal: Yes: WNL Edema: No Neurological: Yes: Oriented Psychiatric: Yes: Oriented Labs: CBC, BMP 02/13/18 06:21 02/17/18 06:30 Problem List - Problems (1) Nephrolithiasis Code(s): N20.0 - CALCULUS OF KIDNEY (2) UTI (urinary tract infection) Code(s): N39.0 - URINARY TRACT INFECTION, SITE NOT SPECIFIED (3) Alcohol dependence Code(s): F10.20 - ALCOHOL DEPENDENCE, UNCOMPLICATED Qualifiers: (4) HIV (human immunodeficiency virus infection) Code(s): B20 - HUMAN IMMUNODEFICIENCY VIRUS [HIV] DISEASE (5) Hypertension Code(s): I10 - ESSENTIAL (PRIMARY) HYPERTENSION Qualifiers: Assessment/Plan Current Medications Generic Name Dose Route Start Last Admin Trade Name Freq PRN Reason Stop Dose Admin Amlodipine Besylate 10 mg 02/13/18 10:00 02/17/18 12:05 Norvasc - PO 10 mg DAILY FATOU Administration Heparin Sodium (Porcine) 5,000 unit 02/17/18 11:15 02/17/18 12:06 Heparin - SQ Not Given BID FATOU Ertapenem 0.5 gm/ Sodium 100 mls @ 200 mls/hr 02/13/18 12:30 02/17/18 11:58 Chloride IVPB 200 mls/hr DAILY FATOU Administration Protocol Sodium Chloride 1,000 mls @ 83 mls/hr 02/14/18 15:15 02/17/18 06:14 1/2 Normal Saline IV 83 mls/hr ASDIR FATOU Administration Losartan Potassium 100 mg 02/13/18 10:00 02/17/18 12:00 Cozaar - PO 100 mg DAILY FATOU Administration Multivitamins/Minerals/Vitamin C 1 tab 02/13/18 11:15 02/17/18 12:00 Tab-A-Vit - PO 1 tab DAILY FATOU Administration Oxycodone HCl 5 mg 02/15/18 12:56 02/17/18 12:06 Roxicodone - PO 5 mg Q6H PRN Administration PAIN LEVEL 6-10 Impression 1. SIDNEY 2. HIV 3. HTN 4. UTI 5. nephrolithiasis 6. hyperkalemia Plan - cont with fluids - discussed renal function with pt, he agrees to outpt workup - repeat labs in am - change losartan to 50 mg - monitor renal function - abx for UTI Dr Mora
[2018-02-18] MEDS: oxyCODONE HCL 5 MG TABLET PO PRN ×2 (00:31→09:36)
[2018-02-18 08:30] LABS: ANION GAP 6 (8-16); BLOOD UREA NITROGEN 22 mg/dL (7-18); CALCIUM 8.6 mg/dL (8.5-10.1); CHLORIDE 109 mmol/L (98-107); CO2 24 mmol/L (21-32); CREATININE 1.9 mg/dL (0.7-1.3); GLUCOSE,RANDOM 83 mg/dL (74-106); POTASSIUM 4.1 mmol/L (3.5-5.1); SODIUM 139 mmol/L (136-145)
[2018-02-18 08:47] VITALS: BP 127/68; PULSE 66; TEMP 98.3
[2018-02-18] MEDS: HEPARIN NA (PORCINE) 5,000 UNITS/ML 1ML VIAL SQ SCH (09:36)
[2018-02-18] MEDS: ERTAPENEM SODIUM 0.5 GM in SODIUM CHLORIDE 100 ML IVPB SCH (09:36)
[2018-02-18] MEDS: amLODIPine BESYLATE 10 MG TABLET (FP) PO SCH (09:36)
[2018-02-18] MEDS: MULTIVITAMINS (DAILY MVI) TABLET (FP) PO SCH (09:36)
[2018-02-18] MEDS ORDERED: LOSARTAN POTASSIUM 50 MG TABLET (FP) PO SCH (10:00)
--- NOTE | 2018-02-18 10:25 | DS ---
Physical Examination Vital Signs: Vital Signs Temperature 98.3 F 02/18/18 08:46 Pulse Rate 66 02/18/18 08:46 Respiratory Rate 20 02/18/18 08:46 Blood Pressure 127/68 02/18/18 08:46 O2 Sat by Pulse Oximetry (%) 96 02/18/18 08:43 Constitutional: Yes: No Distress, Calm, Cachectic Cardiovascular: Yes: Regular Rate and Rhythm Respiratory: Yes: Regular Gastrointestinal: Yes: Normal Bowel Sounds, Soft Musculoskeletal: Yes: Muscle Weakness Extremities: Yes: WNL Edema: No Peripheral Pulses WNL: Yes Neurological: Yes: Alert, Oriented Psychiatric: Yes: Alert, Oriented Labs: CBC, BMP 02/13/18 06:21 02/18/18 07:40 Discharge Summary Reason For Visit: URINARY TRACT INFECTION Current Active Problems SIDNEY (acute kidney injury) (Acute) DVT prophylaxis (Acute) Nephrolithiasis (Acute) UTI (urinary tract infection) (Acute) Hospital Course: 62 y/o man from [facility] for Alcohol Detox. Who presents to the ED sent in for +urine culture and left flank pain. Patient had recent admission 01/29/-02/05 for alcohol withdrawal. Patient reports having L- flank pain x several days worse today. Patient reports having R- leg pain which he attributes to neuropathy 2/2 chronic R- hip pain. Patient denies fever, chills, cough, SOB, dizziness, CP, AP , N/V/D, dysuria uc showed Microbiology 02/12/18 22:20 Blood - Peripheral Venous Blood Culture - Final NO GROWTH AFTER 5 DAYS INCUBATION 02/12/18 22:15 Blood - Peripheral Venous Blood Culture - Final NO GROWTH AFTER 5 DAYS INCUBATION 02/12/18 18:00 Urine - Urine Clean Catch Urine Culture - Final Providencia Rettgeri He was treated with Ertapenam IV for 7 days He was also seen by Petros Rushing for clearance for detox Condition: Stable - Instructions Disposition: TRANSFER ACUTE CARE/OTHER HOSP - Home Medications Comprehensive Discharge Medication List: Ambulatory Orders Amlodipine Besylate 10 mg PO DAILY 02/05/18 Emtricitab/Rilpiviri/Tenof Ala [Odefsey Tablet] 1 tab PO DAILY 02/05/18 Losartan Potassium [Cozaar] 100 mg PO DAILY 02/05/18 Emtricitab/Rilpiviri/Tenof Ala [Odefsey Tablet] 1 tab PO DAILY tablet 02/17/18 Multivitamins [Multivit ([facility])] 1 tab PO DAILY tab 02/17/18 oxyCODONE HCL [Roxicodone -] 5 mg PO Q6H PRN tablet MDD 4 02/17/18
--- NOTE | 2018-02-18 10:46 | CONSULT ---
Consult Detox [facility] Reason for Current Admission/Consult: h/o substance use/requesting medical clearance to return to rehab at [facility]. Referred by:: Ankush scott NP - History History of Present Illness: 63 yo m sent form [facility] rehab adn admitted to [facility] for treatment as urine culture + Providencia Rettgeri which is resistant to all PO abx. Patient needs IV abx tx. Patient is medically stable no compliaints, no withdrawal sx. - History Source History Provided By: Patient, Medical Record, Caregiver Limitations to Obtaining History: No Limitations - Alcohol/Substance Use Hx Alcohol Use: Yes - Past Medical History Cardio/Vascular: Yes: HTN Infectious Disease: Yes: HIV - Significant Medical Findings: 63 yo m medically stable recieving ntibiotics for uti, in isolation at this time. no withdrwal sx noted. Assessment Plan - Diagnosis (1) SIDNEY (acute kidney injury) Status: Acute (2) UTI (urinary tract infection) Status: Acute (3) Alcohol dependence Status: Acute Qualifiers: Substance use status: uncomplicated (4) HIV (human immunodeficiency virus infection) Status: Chronic Comment: compliant with medications (5) Hypertension Status: Chronic Qualifiers: - Plan Plan: chart, imagina and labs reviewed, patietn examined and hisotry taken, discussed care with primary medical team at [facility]; REcommend: 1. patient may return to rehab today if isolation discontinued 2. outpatient appt scheduled in 4 weeks after rehab completed. 3. will repeat labs recommended while in rehab. 4. fluids, mvi Petros Ascencio MD [phone] - Medication Detox Regimen/Protocol: Not Applicable
[2018-02-18] MEDS: EMTRICITAB/RILPIVIRI/TENOF ALA (ODEFSEY) TABLET PO SCH (12:31)
--- NOTE | 2018-02-18 13:00 | PN ---
Progress Note, Physician History of Present Illness: Pt seen and examined at bedside. He is awake and alert. He wants to go back to [facility]. He says he will follow as outpt. - Current Medication List Current Medications: Active Medications Amlodipine Besylate (Norvasc -) 10 mg PO DAILY [facility] Last Admin: 02/18/18 09:36 Dose: 10 mg Heparin Sodium (Porcine) (Heparin -) 5,000 unit SQ BID [facility] Last Admin: 02/18/18 09:36 Dose: Not Given Ertapenem 0.5 gm/ Sodium (Chloride) 100 mls @ 200 mls/hr IVPB DAILY [facility] PRN Reason: Protocol Last Admin: 02/18/18 09:36 Dose: 200 mls/hr Sodium Chloride (1/2 Normal Saline) 1,000 mls @ 83 mls/hr IV ASDIR [facility] Last Admin: 02/17/18 17:50 Dose: Not Given Losartan Potassium (Cozaar -) 50 mg PO DAILY [facility] Last Admin: 02/18/18 09:36 Dose: 50 mg Multivitamins/Minerals/Vitamin C (Tab-A-Vit -) 1 tab PO DAILY [facility] Last Admin: 02/18/18 09:36 Dose: 1 tab - Objective Vital Signs: Vital Signs Temperature 98.3 F 02/18/18 08:46 Pulse Rate 66 02/18/18 08:46 Respiratory Rate 20 02/18/18 08:46 Blood Pressure 127/68 02/18/18 08:46 O2 Sat by Pulse Oximetry (%) 96 02/18/18 08:43 Constitutional: Yes: Calm Eyes: Yes: Conjunctiva Clear HENT: Yes: Atraumatic Neck: Yes: Supple Cardiovascular: Yes: S1, S2 Respiratory: Yes: CTA Bilaterally Gastrointestinal: Yes: Normal Bowel Sounds, Soft Genitourinary: Yes: WNL Musculoskeletal: Yes: WNL Edema: No Integumentary: Yes: WNL, Tattoos Neurological: Yes: Oriented Psychiatric: Yes: Oriented Labs: CBC, BMP 02/13/18 06:21 02/18/18 07:40 Problem List - Problems (1) Nephrolithiasis Code(s): N20.0 - CALCULUS OF KIDNEY (2) UTI (urinary tract infection) Code(s): N39.0 - URINARY TRACT INFECTION, SITE NOT SPECIFIED (3) Alcohol dependence Code(s): F10.20 - ALCOHOL DEPENDENCE, UNCOMPLICATED Qualifiers: (4) HIV (human immunodeficiency virus infection) Code(s): B20 - HUMAN IMMUNODEFICIENCY VIRUS [HIV] DISEASE (5) Hypertension Code(s): I10 - ESSENTIAL (PRIMARY) HYPERTENSION Qualifiers: Assessment/Plan Current Medications Generic Name Dose Route Start Last Admin Trade Name Freq PRN Reason Stop Dose Admin Amlodipine Besylate 10 mg 02/13/18 10:00 02/18/18 09:36 Norvasc - PO 10 mg DAILY FATOU Administration Heparin Sodium (Porcine) 5,000 unit 02/17/18 11:15 02/18/18 09:36 Heparin - SQ Not Given BID FATOU Ertapenem 0.5 gm/ Sodium 100 mls @ 200 mls/hr 02/13/18 12:30 02/18/18 09:36 Chloride IVPB 200 mls/hr DAILY FAT[facility] Administration Protocol Sodium Chloride 1,000 mls @ 83 mls/hr 02/14/18 15:15 02/17/18 17:50 1/2 Normal Saline IV Not Given ASDIR FATOU Losartan Potassium 50 mg 02/18/18 10:00 02/18/18 09:36 Cozaar - PO 50 mg DAILY FATOU Administration Multivitamins/Minerals/Vitamin C 1 tab 02/13/18 11:15 02/18/18 09:36 Tab-A-Vit - PO 1 tab DAILY FATOU Administration Impression 1. SIDNEY 2. HIV 3. HTN 4. UTI 5. nephrolithiasis 6. hyperkalemia 7. CKD Plan - art specialist is at about 1.9, unlcear baseline - discussed renal workup and possible biopsy with pt however he wants workup as outpt - will need to monitor renal function is [facility] - will see pt in office - bp is stable on losartan 50 mg - abx of UTI Dr Mora
== END 2018-02-18 14:44 | disposition short-term general hospital (02) | DRG 460 ==
LOC: JER 17:14 → JERBED 20:07 → J5S 21:15 → J6S 02-13 12:43
PROVIDERS: ADMIT Internal Medicine; ATTEND Family Medicine
DX: N17.9 Acute kidney failure, unspecified (principal); N39.0 Urinary tract infection, site not specified; Z21 Asymptomatic human immunodeficiency virus [HIV] infection status; B96.89 Other specified bacterial agents as the cause of diseases classified elsewhere; R64 Cachexia; Z68.1 Body mass index [BMI] 19.9 or less, adult; H91.93 Unspecified hearing loss, bilateral; M19.90 Unspecified osteoarthritis, unspecified site; R29.5 Transient paralysis; D72.819 Decreased white blood cell count, unspecified; E87.5 Hyperkalemia; H61.22 Impacted cerumen, left ear; I12.9 Hypertensive chronic kidney disease with stage 1 through stage 4 chronic kidney disease, or unspecified chronic kidney disease; N18.9 Chronic kidney disease, unspecified; N20.0 Calculus of kidney; F10.20 Alcohol dependence, uncomplicated; R29.818 Other symptoms and signs involving the nervous system; F19.10 Other psychoactive substance abuse, uncomplicated; Z99.3 Dependence on wheelchair; Z87.891 Personal history of nicotine dependence
CPT/HCPCS: 36415; 71045-TC-FY; 73502-TC-RT; 74176-TC; 80048; 80053; 81003; 81015; 82570; 84156; 85025; 87040; 87086; 87186; 93005; 93010; 97116-GP; 97161-GP; 99283-25; J1644

== ENCOUNTER 2018-02-18 15:49 | Inpatient (IN) | payer OTHER ==
[2018-02-18 16:36] VITALS: BMI 17.8
--- NOTE | 2018-02-18 19:38 | HP ---
Admission [facility] Chief Complaint: "I will like to continue rehab" Allergies/Adverse Reactions: Allergies Allergy/AdvReac Type Severity Reaction Status Date / Time No Known Allergies Allergy Verified 02/18/18 19:25 History of Present Illness: 63 yo male with hx of alcohol dependence is here for rehab. Patient was referred from [facility] after for UTI, SIDNEY, neprolithiasis. Patient denies suicidal / homicidal ideation. Exam Limitations: No Limitations - Ebola screening Have you traveled outside of the country in the last 21 days: No Have you had contact with anyone from an Ebola affected area: No Have you been sick,other than usual withdrawal symptoms: No Do you have a fever: No - Review of Systems Constitutional: Weakness EENT: reports: Hearing Loss (CACHIL DEHE) Respiratory: reports: No Symptoms reported Cardiac: reports: No Symptoms Reported GI: reports: No Symptoms Reported : reports: No Symptoms Reported Musculoskeletal: reports: Back Pain, Joint Stiffness Integumentary: reports: No Symptoms Reported Neuro: reports: Weakness Endocrine: reports: No Symptoms Reported Hematology: reports: See HPI Psychiatric: reports: Orientated x3 Other Systems: Reviewed and Negative Patient History - Patient Medical History Hx Anemia: No Hx Asthma: No Hx Chronic Obstructive Pulmonary Disease (COPD): No Hx Cancer: No Hx Cardiac Disorders: Yes Hx Congestive Heart Failure: No Hx Hypertension: Yes Hx Hypercholesterolemia: No Hx Pacemaker: No HX Cerebrovascular Accident: No Hx Seizures: No Hx Dementia: No Hx Diabetes: No Hx Gastrointestinal Disorders: No Hx Genitourinary Disorders: No Hx Sexually Transmitted Disorders: Yes Hx Renal Disease (ESRD): No Hx Human Immunodeficiency Virus (HIV): Yes Hx Hepatitis C: Yes (treated ) Hx Depression: No Hx Suicide Attempt: No Hx Bipolar Disorder: No Hx Schizophrenia: No - Patient Surgical History Past Surgical History: No Hx Neurologic Surgery: No Hx Cataract Extraction: No Hx Cardiac Surgery: No Hx Lung Surgery: No Hx Breast Surgery: No Hx Breast Biopsy: No Hx Abdominal Surgery: No Hx Appendectomy: No Hx Cholecystectomy: No Hx Genitourinary Surgery: No Hx Section: No Hx Orthopedic Surgery: No Other Surgical History: CERVICAL SPINE SX Anesthesia Reaction: No - PPD History Documented Results: Negative w/proof Date: 02/12/18 (Chest Xray) Results: hx TB tx INH PPD to be Administered?: No - Reproductive History Patient is a Female of Child Bearing Age (11 -55 yrs old): No - Smoking Cessation Smoking history: Former smoker Have you smoked in the past 12 months: No Aproximately how many cigarettes per day: 3 Hx Chewing Tobacco Use: No Initiated information on smoking cessation: No Family Disease History - Family Disease History Family History: Unable to Obtain Admission Physical Exam [facility] - Vital Signs Vital Signs: Vital Signs - 24 hr 02/18/18 16:34 Temperature 97.7 F Pulse Rate 85 Respiratory 18 Rate Blood Pressure 126/90 - Physical General Appearance: Yes: Appropriately Dressed, Thin, Anxious HEENTM: Yes: EOMI, Normal ENT Inspection, Normal Voice, KENIA, Pharynx Normal, Tm 's normal, Hearing Decreased Respiratory: Yes: Chest Non-Tender, Lungs Clear, Normal Breath Sounds, No Respiratory Distress, No Accessory Muscle Use Neck: Yes: No masses,lesions,Nodules, Trachea in good position Breast: Yes: Breast Exam Deferred Cardiology: Yes: Regular Rhythm, Regular Rate Abdominal: Yes: Normal Bowel Sounds, Non Tender, Flat, Soft Genitourinary: Yes: Within Normal Limits Back: Yes: Normal Inspection Musculoskeletal: Yes: Joint Stiffness, Muscle weakness, Other (non - ambualtory uses manual wheelchair for mobility able to operaet independently) Extremities: Yes: Normal Capillary Refill, Normal Inspection, Non-Tender 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 NML intact, Fully Oriented, Alert, Motor Strength 5/5, Depressed Affect Integumentary: Yes: Normal Color, Dry, Warm Lymphatic: Yes: Within Normal Limits - Diagnostic (1) Alcohol dependence Current Visit: Yes Status: Acute Qualifiers: Substance use status: uncomplicated (2) HIV (human immunodeficiency virus infection) Current Visit: No Status: Chronic Comment: compliant with medications (3) Hearing loss, bilateral Current Visit: Yes Status: Chronic Qualifiers: Hearing loss type: unspecified Qualified Code(s): H91.93 - Unspecified hearing loss, bilateral (4) Hypertension Current Visit: Yes Status: Chronic Qualifiers: (5) Primary generalized (osteo)arthritis Current Visit: No Status: Chronic (6) Transient paralysis of right lower extremity Current Visit: Yes Status: Chronic (7) Wheelchair dependence Current Visit: Yes Status: Chronic BHS Breath Alcohol Content Breath Alcohol Content: 0 Urine Drug Screen - Results Drug Screen Negative: No Urine Drug Screen Results: OXY-Oxycodone Inpatient Rehab Admission - Initial Determination Are CD services needed?: Yes Free of communicable disease: Yes Not in need of hospitalization: Yes - Rehab Admission Criteria Previous failed treatment: Yes Poor recovery environment: Yes Comorbidities: Yes Lacks judgement: Yes Patient is meeting Inpatient Rehab admission criteria:: Yes
[2018-02-18] MEDS ORDERED: LOPERAMIDE HCL 2 MG CAPSULE PO PRN (19:39)
[2018-02-18] MEDS ORDERED: MAGNESIUM HYDROX 2400MG/30ML ORAL SUSPENSION 30 ML CUP PO PRN (19:39)
[2018-02-18] MEDS ORDERED: MENTHOL/PHENOL 1 EACH UD MM PRN (19:39)
[2018-02-18] MEDS ORDERED: P-EPHED 60MG/TRIPROLIDI 2.5MG TABLET PO PRN (19:39)
[2018-02-18] MEDS ORDERED: ACETAMINOPHEN 325 MG TABLET (FP) PO PRN (19:39)
[2018-02-18] MEDS ORDERED: MAG HYDROX/AL HYDROX/SIMETH 30 ML UNIT-DOSE CUP PO PRN (19:39)
[2018-02-18] MEDS ORDERED: hydrOXYzine PAMOATE 50 MG CAPSULE (FP) PO PRN (19:39)
[2018-02-18] MEDS ORDERED: MAGNESIUM CITRATE 300 ML BOTTLE PO PRN (19:39)
[2018-02-18] MEDS ORDERED: IBUPROFEN 400 MG TABLET (FP) PO PRN (19:39)
[2018-02-18] MEDS ORDERED: guaiFENesin/D-METHORPHAN HB 10 ML UNIT-DOSE CUPS PO PRN (19:39)
[2018-02-18] MEDS: THIAMINE HCL 100 MG TABLET (FP) PO SCH (21:41)
[2018-02-18 21:57] LABS: URINE APPEARANCE SLCLOUDY; URINE BILIRUBIN NEGATIVE (<2.0 mg/dL); URINE BLOOD NEGATIVE (NEGATIVE); URINE COLOR LTYELLOW; URINE GLUCOSE (UA) NEGATIVE (NEGATIVE); URINE KETONE NEGATIVE (NEGATIVE); URINE LEUK ESTERASE NEGATIVE (NEGATIVE); URINE NITRITE NEGATIVE (NEGATIVE); URINE PROTEIN NEGATIVE (NEGATIVE); URINE UROBILINOGEN NEGATIVE mg/dL (0.2-1.0)
[2018-02-18] MEDS ORDERED: MELATONIN 5 MG TABLETS PO PRN (22:00)
[2018-02-19] MEDS: PRENATAL VITAMINS W/ FOLIC ACID TABLET (FP) PO SCH (10:42)
[2018-02-19] MEDS: LOSARTAN POTASSIUM 50 MG TABLET (FP) PO SCH (10:42)
[2018-02-19] MEDS: amLODIPine BESYLATE 10 MG TABLET (FP) PO SCH (10:42)
[2018-02-19] MEDS: EMTRICITAB/RILPIVIRI/TENOF ALA (ODEFSEY) TABLET PO SCH (13:00)
--- NOTE | 2018-02-19 13:24 | HP ---
Psychiatrist Admission - Data Date of interview: 02/19/18 Admission source: Cesar Sofía Identifying data: This is a re-admission to inpatient rehabilitation admission for this 62 year old single AA male no children, residing at [facility], supported on SSI. Medical History: HIV+, Paralysis of both lower extremity and uses wheel-chair, HTN, Osteoarthritis and Hearing loss patient was readmitted to unit from [facility] s/p treatment for UTI, SIDNEY and neprolithiasis Psychiatric History: Denies history of psychiatric treatment Physical/Sexual Abuse/Trauma History: Denies history of sexual, physical and verbal abuse. Vital Signs: Vital Signs - 24 hr 02/18/18 02/19/18 02/19/18 16:34 03:30 07:03 Temperature 97.7 F 98.0 F Pulse Rate 85 104 H Respiratory 18 16 16 Rate Blood Pressure 126/90 102/77 Allergies/Adverse Reactions: Allergies Allergy/AdvReac Type Severity Reaction Status Date / Time No Known Allergies Allergy Verified 02/18/18 19:25 Date of last physical exam: 02/18/18 Concur with the findings of this exam: Yes - Substance Abuse/Tx History Hx Alcohol Use: Yes Substance Use Type: Alcohol Hx Substance Use Treatment: Yes Mental Status Exam - Mental Status Exam Alert and Oriented to: Time, Place, Person Cognitive Function: Good Patient Appearance: Well Groomed Mood: Hopeful Affect: Appropriate, Mood Congruent Patient Behavior: Appropriate, Cooperative Speech Pattern: Clear Voice Loudness: Normal Thought Process: Intact, Goal Oriented Thought Disorder: Not Present Hallucinations: Denies Suicidal Ideation: Denies Homicidal Ideation: Denies Insight/Judgement: Fair Sleep: Fair Appetite: Fair Gait/Station: Other (wheelchair) Psychiatric Findings - Problem List ([place] 1, 2,3) (1) Alcohol dependence Current Visit: Yes Status: Acute Qualifiers: Substance use status: uncomplicated Qualified Code(s): F10.20 - Alcohol dependence, uncomplicated - Initial Treatment Plan Initial Treatment Plan: will monitor progress as needed.
[2018-02-19] MEDS: THIAMINE HCL 100 MG TABLET (FP) PO SCH (21:06)
[2018-02-20 06:45] VITALS: BP 114/81; PULSE 89; TEMP 97.8
[2018-02-20] MEDS: EMTRICITAB/RILPIVIRI/TENOF ALA (ODEFSEY) TABLET PO SCH (09:45)
[2018-02-20] MEDS: PRENATAL VITAMINS W/ FOLIC ACID TABLET (FP) PO SCH (09:45)
[2018-02-20] MEDS: amLODIPine BESYLATE 10 MG TABLET (FP) PO SCH (09:45)
[2018-02-20] MEDS: LOSARTAN POTASSIUM 50 MG TABLET (FP) PO SCH (09:45)
--- NOTE | 2018-02-20 10:31 | PN ---
Psychiatric Progress Note Vital Signs: Vital Signs Period Temp Pulse Resp BP Sys/Sparks Pulse Ox Last 24 Hr 97.8 F 89 16-18 114/81 Date of Session: 02/20/18 Chief Complaint:: discharge visit HPI: Patient he was admited to on 02/05/18 due to medical emergency was transferred to [facility] on 12/15, was medically stabilized and re-admitted back on 02/18/18 to , has addressed alcohol dependence. Current Medications: Active Medications Generic Name Dose Route Start Last Admin Trade Name Freq PRN Reason Stop Dose Admin Acetaminophen 650 mg 02/18/18 19:39 Tylenol - PO Q4H PRN FEVER Al Hydroxide/Mg Hydroxide 30 ml 02/18/18 19:39 Mylanta Oral Suspension - PO Q6H PRN DYSPEPSIA Amlodipine Besylate 10 mg 02/19/18 10:00 02/20/18 09:45 Norvasc - PO 10 mg DAILY FATOU Administration Eucalyptus/Menthol/Phenol/Sorbitol 1 each 02/18/18 19:39 Cepastat Lozenge - MM Q4H PRN SORE THROAT Guaifenesin 10 ml 02/18/18 19:39 Robitussin Dm - PO Q6H PRN COUGH Hydroxyzine Pamoate 50 mg 02/18/18 19:39 Vistaril - PO Q4H PRN AGITATION Ibuprofen 400 mg 02/18/18 19:39 Motrin - PO Q6H PRN Pain level 4-6 Loperamide HCl 4 mg 02/18/18 19:39 Imodium - PO Q6H PRN DIARRHEA Losartan Potassium 100 mg 02/19/18 10:00 02/20/18 09:45 Cozaar - PO 100 mg DAILY FATOU Administration Magnesium Citrate 300 ml 02/18/18 19:39 Citroma - PO Q48H PRN CONSTIPATION Magnesium Hydroxide 30 ml 02/18/18 19:39 Milk Of Magnesia - PO DAILY PRN CONSTIPATION Melatonin 5 mg 02/18/18 22:00 Melatonin PO HS PRN INSOMNIA Multivit/Folic Acid/Iron 1 tab 02/19/18 10:00 02/20/18 09:45 Vitamins (Sjr) - PO 1 tab DAILY FATOU Administration Pseudoephedrine/Triprolidine 1 combo 02/18/18 19:39 Actifed - PO TID PRN NASAL CONGESTION Thiamine HCl 100 mg 02/18/18 22:00 02/19/18 21:06 Vitamin B1 - PO 100 mg HS FATOU Administration Current Side Effect: No Lab tests ordered: No Lab tests reviewed: Yes Provider note:: He completed today 8 days in rehabilitation, will continue to address his issues at [facility], he was encouraged to continue maintain abstinence and to f/u with his medical appointments, stable for discharge today. Total face to face time:: 10 Mental Status Exam - Mental Status Exam Alert and Oriented to: Time, Place, Person Cognitive Function: Good Patient Appearance: Well Groomed Mood: Hopeful Affect: Appropriate, Mood Congruent Patient Behavior: Appropriate, Cooperative Speech Pattern: Clear, Appropriate Voice Loudness: Normal Thought Process: Goal Oriented Thought Disorder: Not Present Hallucinations: Denies Suicidal Ideation: Denies Homicidal Ideation: Denies Insight/Judgement: Fair Sleep: Fair Appetite: Fair Gait/Station: Other (in wheelchair) Psychiatric Treatment Plan - Problem List (1) Alcohol dependence Current Visit: Yes Qualifiers: Substance use status: uncomplicated Qualified Code(s): F10.20 - Alcohol dependence, uncomplicated
== END 2018-02-20 10:15 | disposition home or self-care (01) | DRG 772 ==
LOC: YASAS 15:49 → Y6N 18:11 → Y5N 19:44
PROVIDERS: ADMIT Internal Medicine; ATTEND Psychiatry & Neurology Psychiatry
PROC: HZ42ZZZ Group Counseling for Substance Abuse Treatment, Cognitive-Behavioral (ICD-10-PCS; principal; 2018-02-18)
DX: F10.20 Alcohol dependence, uncomplicated (principal); I10 Essential (primary) hypertension; M10.9 Gout, unspecified; H91.93 Unspecified hearing loss, bilateral; Z21 Asymptomatic human immunodeficiency virus [HIV] infection status; Z86.19 Personal history of other infectious and parasitic diseases; R26.89 Other abnormalities of gait and mobility; Z99.89 Dependence on other enabling machines and devices; R29.818 Other symptoms and signs involving the nervous system; M15.0 Primary generalized (osteo)arthritis
CPT/HCPCS: 81003